=== PATIENT | female | born 1935 | race Caucasian/White ===

== ENCOUNTER 2016-09-26 09:34 | Outpatient (CLI) | payer MEDICARE, OTHER | END 2016-09-26 09:35 | disposition home or self-care (01) | DX: I48.91 Unspecified atrial fibrillation (principal) ==

== ENCOUNTER 2016-10-16 12:05 | Outpatient (CLI) | payer MEDICARE, OTHER | END 2016-10-16 12:06 | disposition home or self-care (01) | DX: M51.36 Other intervertebral disc degeneration, lumbar region (principal); M47.816 Spondylosis without myelopathy or radiculopathy, lumbar region; M47.814 Spondylosis without myelopathy or radiculopathy, thoracic region; M40.14 Other secondary kyphosis, thoracic region ==

== ENCOUNTER 2016-10-24 09:56 | Outpatient (CLI) | payer MEDICARE, OTHER | END 2016-10-24 09:57 | disposition home or self-care (01) | DX: I48.91 Unspecified atrial fibrillation (principal) ==

== ENCOUNTER 2016-11-07 09:54 | Outpatient (CLI) | payer MEDICARE, OTHER | END 2016-11-07 09:55 | disposition home or self-care (01) | DX: I48.91 Unspecified atrial fibrillation (principal) ==

== ENCOUNTER 2016-11-28 10:13 | Emergency (ER) | payer MEDICARE, OTHER ==
[2016-11-28] MEDS ORDERED: CEPHALEXIN 250 MG CAPSULE PO STA (10:33)
[2016-11-28] MEDS ORDERED: BACITRACIN OINT TOP STA (10:33)
[2016-11-28] MEDS ORDERED: CEPHALEXIN 250 MG CAPSULE PO ONE (10:38)
== END 2016-11-28 11:57 | disposition home or self-care (01) ==
DX: L03.114 Cellulitis of left upper limb (principal); L76.21 Postprocedural hemorrhage of skin and subcutaneous tissue following a dermatologic procedure; Y83.8 Other surgical procedures as the cause of abnormal reaction of the patient, or of later complication, without mention of misadventure at the time of the procedure; E11.51 Type 2 diabetes mellitus with diabetic peripheral angiopathy without gangrene; I10 Essential (primary) hypertension; E78.00 Pure hypercholesterolemia, unspecified; I48.91 Unspecified atrial fibrillation; J44.9 Chronic obstructive pulmonary disease, unspecified; Z86.73 Personal history of transient ischemic attack (TIA), and cerebral infarction without residual deficits; Z87.891 Personal history of nicotine dependence; Z79.1 Long term (current) use of non-steroidal anti-inflammatories (NSAID)
CPT/HCPCS: 36415; 85610; 99283; A9270

== ENCOUNTER 2016-12-01 09:28 | Emergency (ER) | payer MEDICARE, OTHER | END 2016-12-01 10:29 | disposition home or self-care (01) | DX: T81.30XA Disruption of wound, unspecified, initial encounter (principal); Y83.8 Other surgical procedures as the cause of abnormal reaction of the patient, or of later complication, without mention of misadventure at the time of the procedure; M79.89 Other specified soft tissue disorders; I48.91 Unspecified atrial fibrillation; Z79.01 Long term (current) use of anticoagulants; E11.51 Type 2 diabetes mellitus with diabetic peripheral angiopathy without gangrene; I10 Essential (primary) hypertension; J44.9 Chronic obstructive pulmonary disease, unspecified; Z87.891 Personal history of nicotine dependence ==

== ENCOUNTER 2016-12-06 08:29 | Outpatient (CLI) | payer MEDICARE, OTHER | END 2016-12-06 08:30 | disposition home or self-care (01) | DX: I48.91 Unspecified atrial fibrillation (principal) ==

== ENCOUNTER 2017-01-02 10:39 | Outpatient (CLI) | payer MEDICARE, OTHER | END 2017-01-02 10:40 | disposition home or self-care (01) | DX: I48.91 Unspecified atrial fibrillation (principal) ==

== ENCOUNTER 2017-01-30 09:53 | Outpatient (CLI) | payer MEDICARE, OTHER | END 2017-01-30 09:54 | disposition home or self-care (01) | DX: I48.91 Unspecified atrial fibrillation (principal) ==

== ENCOUNTER 2017-02-06 09:37 | Outpatient (CLI) | payer MEDICARE, OTHER | END 2017-02-06 09:38 | disposition home or self-care (01) | LOC: LAB 09:37 | PROVIDERS: ATTEND Internal Medicine | DX: I48.91 Unspecified atrial fibrillation (principal) | CPT/HCPCS: 85610 ==

== ENCOUNTER 2017-02-12 10:21 | Outpatient (CLI) | payer MEDICARE, OTHER ==
--- NOTE | 2017-02-12 11:31 | CT Report ---
CT BRAIN WITHOUT CONTRAST: 02/12/2017 CLINICAL INDICATION: Headache, multiple falls. COMPARISON: 12/16/2014 TECHNIQUE: Axial CT images of the brain were obtained without contrast. In accordance with CT protocol optimization, one or more of the following dose reduction techniques w ere utilized for this exam: automated exposure control, adjustment of mA and/or KV based on patient size, or use of iterative reconstructive technique. FINDINGS: Atrophy and chronic ischemic changes appear stable. There is no evidence of acute hemorr alvaro, mass effect, or midline shift. The basilar cisterns remain patent. No calvarial fracture is s een. IMPRESSION: STABLE ATROPHY AND CHRONIC ISCHEMIC CHANGES. NO ACUTE HEMORRHAGE OR MASS EFFECT. JOB #: [id number] EXT JOB #:[id number]
--- NOTE | 2017-02-12 12:12 | XRAY Report ---
THREE-VIEW CERVICAL SPINE: 02/12/2017 CLINICAL INDICATION: Neck pain, tenderness to palpation, decreased range of motion. FINDINGS: AP, lateral, odontoid views of the cervical spine are compared to previous films of 2008. There has been progression of degenerative disc and facet disease, now severe. There is no ev idence of acute fracture or subluxation. Postoperative changes are noted in the right carotid bed. Vascular calcifications are noted in the left carotid bed. IMPRESSION: EXTENSIVE DEGENERATIVE CHANGES. NO EVIDENCE OF ACUTE FRACTURE. JOB #: [id number] EXT JOB #:[id number]
== END 2017-02-12 10:22 | disposition home or self-care (01) ==
LOC: DI 10:21
PROVIDERS: ATTEND Nurse Practitioner Primary Care
DX: G31.9 Degenerative disease of nervous system, unspecified (principal); I67.82 Cerebral ischemia; M50.30 Other cervical disc degeneration, unspecified cervical region; M47.892 Other spondylosis, cervical region
CPT/HCPCS: 70450; 72040

== ENCOUNTER 2017-02-20 10:02 | Outpatient (CLI) | payer MEDICARE, OTHER | END 2017-02-20 10:03 | disposition home or self-care (01) | LOC: LAB 10:02 | PROVIDERS: ATTEND Internal Medicine | DX: I48.91 Unspecified atrial fibrillation (principal) | CPT/HCPCS: 85610 ==

== ENCOUNTER 2017-03-20 08:29 | Outpatient (CLI) | payer MEDICARE, OTHER ==
[2017-03-20 09:42] LABS: ALBUMIN/GLOBULIN RATIO 1.4 (1.0-2.2); BUN - BLOOD UREA NITROGEN 34 mg/dL (6-20); CALCIUM 8.6 mg/dL (8.5-10.3); CARBON DIOXIDE - CO2 30 mmol/L (21-32); CHLORIDE 102 mmol/L (101-111); CHOL/HDL RATIO 2.4 (<4.4); CHOLESTEROL 126 mg/dL; CREATININE 1.6 mg/dL (0.4-1.0); GFR - MDRD 31 (>89); GLUCOSE 103 mg/dL (70-100); HDL CHOLESTEROL 53 mg/dL; POTASSIUM 4.1 mmol/L (3.5-5.0); SODIUM 139 mmol/L (135-145); TOTAL PROTEIN 6.6 g/dL (6.7-8.2); TRIGLYCERIDES 98 mg/dL; VLDL CHOLESTEROL 20 mg/dL
[2017-03-20 09:44] LABS: INR 2.1 (0.8-1.2); PT - PROTHROMBIN TIME 23.8 secs (9.9-12.6)
[2017-03-20 09:50] LABS: EOSINOPHILS # (AUTO) 0.1 10^3/uL (0.0-0.7); EOSINOPHILS % (AUTO) 2.8 %; HGB - HEMOGLOBIN 13.2 g/dL (12.0-16.0); LYMPHOCYTES # (AUTO) 0.7 10^3/uL (1.5-3.5); LYMPHOCYTES % (AUTO) 15.7 %; MEAN CORPUSCULAR HEMOGLOBIN 32.9 pg (27.0-31.0); MEAN CORPUSCULAR HGB CONC 33.9 g/dL (32.0-36.0); MEAN CORPUSCULAR VOLUME 97.1 fL (81.0-99.0); MEAN PLATELET VOLUME 9.8 fL (7.9-10.8); MONOCYTES # (AUTO) 0.6 10^3/uL (0.0-1.0); MONOCYTES % (AUTO) 14.2 %; NEUTROPHILS % (AUTO) 66.3 %; RED BLOOD COUNT 4.02 10^6/uL (4.20-5.40); RED CELL DISTRIBUTION WIDTH 13.7 % (12.0-15.0); UNCORRECTED WHITE BLOOD COUNT 4.5 x10^3/uL; WHITE BLOOD COUNT 4.5 x10^3/uL (4.8-10.8)
== END 2017-03-20 08:30 | disposition home or self-care (01) ==
LOC: LAB.R 08:29
PROVIDERS: ATTEND Nurse Practitioner Primary Care
DX: E78.2 Mixed hyperlipidemia (principal); N18.9 Chronic kidney disease, unspecified; I12.9 Hypertensive chronic kidney disease with stage 1 through stage 4 chronic kidney disease, or unspecified chronic kidney disease; R73.09 Other abnormal glucose; I48.2 Chronic atrial fibrillation; Z79.01 Long term (current) use of anticoagulants; Z79.899 Other long term (current) drug therapy
CPT/HCPCS: 80053; 80061; 84443; 85025; 85610

== ENCOUNTER 2017-04-07 10:01 | Outpatient (CLI) | payer MEDICARE, OTHER | END 2017-04-07 10:02 | disposition home or self-care (01) | LOC: LAB 10:01 | PROVIDERS: ATTEND Internal Medicine | DX: I48.91 Unspecified atrial fibrillation (principal) | CPT/HCPCS: 85610 ==

== ENCOUNTER 2017-05-06 10:36 | Outpatient (CLI) | payer MEDICARE, OTHER | END 2017-05-06 10:37 | disposition home or self-care (01) | LOC: LAB 10:36 | PROVIDERS: ATTEND Internal Medicine | DX: I48.91 Unspecified atrial fibrillation (principal) | CPT/HCPCS: 85610 ==

== ENCOUNTER 2017-06-03 10:11 | Outpatient (CLI) | payer MEDICARE, OTHER | END 2017-06-03 10:12 | disposition home or self-care (01) | LOC: LAB 10:11 | PROVIDERS: ATTEND Internal Medicine | DX: I48.91 Unspecified atrial fibrillation (principal) | CPT/HCPCS: 85610 ==

== ENCOUNTER 2017-06-10 10:09 | Outpatient (CLI) | payer MEDICARE, OTHER | END 2017-06-10 10:10 | disposition home or self-care (01) | LOC: LAB 10:09 | PROVIDERS: ATTEND Internal Medicine | DX: I48.91 Unspecified atrial fibrillation (principal) | CPT/HCPCS: 85610 ==

== ENCOUNTER 2017-06-17 09:13 | Outpatient (CLI) | payer MEDICARE, OTHER | END 2017-06-17 09:14 | disposition home or self-care (01) | LOC: LAB 09:13 | PROVIDERS: ATTEND Internal Medicine | DX: I48.91 Unspecified atrial fibrillation (principal); N18.3 Chronic kidney disease, stage 3 (moderate) | CPT/HCPCS: 82565; 84520; 85610 ==

== ENCOUNTER 2017-06-17 12:58 | Outpatient (CLI) | payer MEDICARE, OTHER ==
[2017-06-17 13:28] LABS: CREATININE 1.4 mg/dL (0.4-1.0)
== END 2017-06-17 12:59 | disposition home or self-care (01) ==
LOC: LAB.R 12:58
PROVIDERS: ATTEND Nurse Practitioner Primary Care
DX: N18.3 Chronic kidney disease, stage 3 (moderate) (principal)
CPT/HCPCS: 82565; 84520

== ENCOUNTER 2017-06-24 09:34 | Outpatient (CLI) | payer MEDICARE, OTHER | END 2017-06-24 09:35 | disposition home or self-care (01) | LOC: LAB 09:34 | PROVIDERS: ATTEND Internal Medicine | DX: I48.91 Unspecified atrial fibrillation (principal) | CPT/HCPCS: 85610 ==

== ENCOUNTER 2017-07-22 12:56 | Outpatient (CLI) | payer MEDICARE, OTHER | END 2017-07-22 12:57 | disposition home or self-care (01) | LOC: LAB 12:56 | PROVIDERS: ATTEND Internal Medicine | DX: I48.91 Unspecified atrial fibrillation (principal) | CPT/HCPCS: 85610 ==

== ENCOUNTER 2017-08-02 11:41 | Emergency (ER) | payer MEDICARE, OTHER ==
--- NOTE | 2017-08-02 12:21 | ED Physician Documentation ---
PD HPI UPPER EXT INJURY - Stated complaint Stated Complaint: R HAND LUMP-BRUISE/ARM BRUISE - Chief complaint Chief Complaint: Ext Problem - History obtained from History obtained from: Patient - History of Present Illness Location: Right, Hand (Without specific injury she has a several day painful lump on the dorsum of the right hand. Somewhat painful. Last INR was 2.8 a couple of weeks ago.) Review of Systems Constitutional: reports: Reviewed and negative Nose: reports: Reviewed and negative Respiratory: reports: Reviewed and negative PD PAST MEDICAL HISTORY - Past Medical History Past Medical History: Yes Cardiovascular: Hypertension, High cholesterol, Peripheral Vascular Disease, Atrial fibrillation Respiratory: COPD, Pneumonia Neuro: CVA Endocrine/Autoimmune: Type 2 diabetes : Renal insuffiency, Kidney stones HEENT: Macular degeneration Musculoskeletal: Osteoarthritis, Osteopenia, Gout, Chronic back pain Derm: Other - Past Surgical History Past Surgical History: Yes General: Appendectomy, Colonoscopy Ortho: Hip replacement, Knee replacement, 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 HEENT: Cataracts - Present Medications Home Medications: Ambulatory Orders Medication Instructions Recorded Confirmed Warfarin Sodium 5 mg PO DAILY 10/10/14 08/02/17 Albuterol Sulfate [Ventolin Hfa] 1 puffs INH BID 12/15/14 08/02/17 Atorvastatin [Lipitor] 10 mg PO DAILY 12/15/14 08/02/17 Cholecalciferol [Vitamin D3] 2,000 mg PO DAILY 12/15/14 08/02/17 Fluticasone/Salmeterol 500/50 1 puffs INH BID 12/15/14 08/02/17 [Advair 500 Mcg/50 Mcg] Lisinopril 30 mg PO DAILY 12/15/14 08/02/17 Metoprolol Succinate 25 mg PO BID 12/15/14 08/02/17 Montelukast Sodium [Singulair] 10 mg PO DAILY 12/15/14 08/02/17 Ubidecarenone [Coenzyme Q10] 10 mg PO DAILY 12/15/14 08/02/17 Lidocaine Patch 5% [Lidoderm Patch] 1 each TOP DAILY PRN #10 patch 09/04/1510/18 Loratadine [Claritin] 10 mg PO DAILY 09/04/15 08/02/17 Furosemide 20 mg PO DAILY 11/28/16 08/02/17 - Allergies Allergies/Adverse Reactions: Allergies Allergy/AdvReac Type Severity Reaction Status Date / Time No Known Drug Allergies Allergy Verified 08/02/17 11:52 - Social History Does the pt smoke?: No Smoking Status: Never smoker Does the pt drink ETOH?: No Does the pt have substance abuse?: No - Immunizations Immunizations are current?: Yes - POLST Patient has POLST: No PD ED PE NORMAL - Vitals Vital signs reviewed: Yes - General General: Alert and oriented X 3, No acute distress - Extremities Extremities: Other (Tender hematoma measuring 2x2cm with swelling and bruising up the forearm. NVI in the fingers.) - Neuro Neuro: Alert and oriented X 3, Normal speech - Psych Psych: Normal mood, Normal affect Results - Vitals Vitals: Vital Signs - 24 hr 08/02/17 08/02/17 11:46 12:53 Temperature 36.2 C L 36.3 C L Heart Rate 69 63 Respiratory 16 18 Rate Blood Pressure 132/66 H 146/76 H O2 Saturation 100 100 Oxygen O2 Source Room air - Labs Labs: Laboratory Tests 08/02/17 13:11 Whole Blood INR 7.2 H* Procedures - Abscess I&D (location) R hand hematoma Preparation: Confirmed with ultrasound, Chlorhexadine, Lidocaine 1%, Other (We discussed potentially either leaving it with a pressure dressing or doing an incision and drainage, she is losing sleep over the pain and the pressure of that so it seems reasonable to do the incision and drainage, verbal informed consent was obtained after discussion of the risks and benefits including infection.) Incision: Incised with scalpel Other: Pt tolerated well, Dressing applied PD MEDICAL DECISION MAKING - ED course ED course: 82-year-old with a swollen hematoma of the right hand that was incised and drained and dressed, her INR was quite supratherapeutic and she was given a small oral dose of vitamin K and close follow-up was advised. Departure - Departure Disposition: 01 Home, Self Care Clinical Impression: Supratherapeutic INR Traumatic hematoma of right hand Qualifiers: Encounter type: initial encounter Qualified Code(s): S60.221A - Contusion of right hand, initial encounter Condition: Good Record reviewed to determine appropriate education?: Yes Comments: You can change the dressing once a day, washing it with soap and water but leaving the Steri-Strips/butterfly bandages on. Follow-up with Dr. rodrigues on Friday for wound check and recheck of your INR which was greater than 7 today. Stop Coumadin until you see Dr Rodrigues.
[2017-08-02 12:54] VITALS: BP 146/76
[2017-08-02] MEDS ORDERED: PHYTONADIONE 10 MG/ML AMP PO ONE (13:15)
[2017-08-02] MEDS ORDERED: PHYTONADIONE 10 MG/ML AMP ONE (13:32)
== END 2017-08-02 13:48 | disposition home or self-care (01) ==
LOC: ED 11:41
DX: S60.221A Contusion of right hand, initial encounter (principal); X58.XXXA Exposure to other specified factors, initial encounter; I10 Essential (primary) hypertension; E11.51 Type 2 diabetes mellitus with diabetic peripheral angiopathy without gangrene; E78.00 Pure hypercholesterolemia, unspecified; R79.1 Abnormal coagulation profile; I48.91 Unspecified atrial fibrillation; Z86.73 Personal history of transient ischemic attack (TIA), and cerebral infarction without residual deficits; Z96.659 Presence of unspecified artificial knee joint; Z96.649 Presence of unspecified artificial hip joint; Z79.01 Long term (current) use of anticoagulants
CPT/HCPCS: 10140; 11740; 85610; 99283

== ENCOUNTER 2017-08-06 13:05 | Outpatient (CLI) | payer MEDICARE, OTHER | END 2017-08-06 13:06 | disposition home or self-care (01) | LOC: LAB 13:05 | PROVIDERS: ATTEND Internal Medicine | DX: I48.91 Unspecified atrial fibrillation (principal); L03.113 Cellulitis of right upper limb; Z76.89 Persons encountering health services in other specified circumstances | CPT/HCPCS: 80053; 85025; 85610 ==

== ENCOUNTER 2017-08-06 14:13 | Outpatient (CLI) | payer MEDICARE, OTHER ==
[2017-08-06 14:55] LABS: BASOPHILS % (AUTO) 0.2 %; EOSINOPHILS % (AUTO) 0.4 %; HCT - HEMATOCRIT 38.7 % (37.0-47.0); HGB - HEMOGLOBIN 13.4 g/dL (12.0-16.0); LYMPHOCYTES # (AUTO) 0.4 10^3/uL (1.5-3.5); LYMPHOCYTES % (AUTO) 5.3 %; MEAN CORPUSCULAR HEMOGLOBIN 33.5 pg (27.0-31.0); MEAN CORPUSCULAR HGB CONC 34.6 g/dL (32.0-36.0); MEAN CORPUSCULAR VOLUME 96.7 fL (81.0-99.0); MEAN PLATELET VOLUME 10.2 fL (7.9-10.8); MONOCYTES % (AUTO) 12.1 %; NEUTROPHILS # (AUTO) 6.7 10^3/uL (1.5-6.6); NUCLEATED RED BLOOD CELLS AUTO 0.3 /100WBC; RED CELL DISTRIBUTION WIDTH 13.9 % (12.0-15.0); UNCORRECTED WHITE BLOOD COUNT 8.2 x10^3/uL; WHITE BLOOD COUNT 8.2 x10^3/uL (4.8-10.8)
[2017-08-06 15:02] LABS: ALBUMIN/GLOBULIN RATIO 1.1 (1.0-2.2); BILIRUBIN,TOTAL 3.3 mg/dL (0.2-1.0); CALCIUM 8.8 mg/dL (8.5-10.3); CREATININE 1.3 mg/dL (0.4-1.0); POTASSIUM 4.1 mmol/L (3.5-5.0)
== END 2017-08-06 14:14 | disposition home or self-care (01) ==
LOC: LAB.R 14:13
PROVIDERS: ATTEND Nurse Practitioner Primary Care
DX: L03.113 Cellulitis of right upper limb (principal); Z76.89 Persons encountering health services in other specified circumstances
CPT/HCPCS: 80053; 85025

== ENCOUNTER 2017-08-18 10:25 | Emergency (ER) | payer MEDICARE, OTHER ==
[2017-08-18 10:35] VITALS: BP 125/73
--- NOTE | 2017-08-18 12:15 | ED Physician Documentation ---
PD HPI UPPER EXT INJURY - Stated complaint Stated Complaint: R HAND SWOLLEN - Chief complaint Chief Complaint: Ext Problem - History obtained from History obtained from: Patient - History of Present Illness Location: Right (She was seen by me approximately 2 weeks ago for right hand hematoma with a supratherapeutic INR, about 7. She has seen her doctor in the meantime and was placed on antibiotics and her INR has drifted down. She returns today because there is another persistent painful lump on the dorsum of the hand without fevers but there is mild redness of the arm.) Review of Systems Constitutional: reports: Reviewed and negative. denies: Fever, Chills Nose: reports: Reviewed and negative Throat: reports: Reviewed and negative PD PAST MEDICAL HISTORY - Past Medical History Past Medical History: Yes Cardiovascular: Hypertension, High cholesterol, Peripheral Vascular Disease, Atrial fibrillation Respiratory: COPD, Pneumonia Neuro: CVA Endocrine/Autoimmune: Type 2 diabetes : Renal insuffiency, Kidney stones HEENT: Macular degeneration Musculoskeletal: Osteoarthritis, Osteopenia, Gout, Chronic back pain Derm: Other - Past Surgical History Past Surgical History: Yes General: Appendectomy, Colonoscopy Ortho: Hip replacement, Knee replacement, 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 HEENT: Cataracts - Present Medications Home Medications: Ambulatory Orders Medication Instructions Recorded Confirmed Warfarin Sodium 5 mg PO DAILY 10/10/14 08/18/17 Albuterol Sulfate [Ventolin Hfa] 1 puffs INH BID 12/15/14 08/18/17 Atorvastatin [Lipitor] 10 mg PO DAILY 12/15/14 08/18/17 Cholecalciferol [Vitamin D3] 2,000 mg PO DAILY 12/15/14 08/18/17 Fluticasone/Salmeterol 500/50 1 puffs INH BID 12/15/14 08/18/17 [Advair 500 Mcg/50 Mcg] Lisinopril 30 mg PO DAILY 12/15/14 08/18/17 Metoprolol Succinate 25 mg PO BID 12/15/14 08/18/17 Montelukast Sodium [Singulair] 10 mg PO DAILY 12/15/14 08/18/17 Ubidecarenone [Coenzyme Q10] 10 mg PO DAILY 12/15/14 08/18/17 Lidocaine Patch 5% [Lidoderm Patch] 1 each TOP DAILY PRN #10 patch 09/04/15 Loratadine [Claritin] 10 mg PO DAILY 09/04/15 08/18/17 Furosemide 20 mg PO DAILY 11/28/16 08/18/17 Cephalexin [Keflex] 500 mg PO QID #40 capsule 08/18/17 - Allergies Allergies/Adverse Reactions: Allergies Allergy/AdvReac Type Severity Reaction Status Date / Time No Known Drug Allergies Allergy Verified 08/18/17 10:35 - Social History Does the pt smoke?: No Smoking Status: Former smoker Does the pt drink ETOH?: No Does the pt have substance abuse?: No - Immunizations Immunizations are current?: Yes - POLST Patient has POLST: No PD ED PE NORMAL - Vitals Vital signs reviewed: Yes - General General: Alert and oriented X 3, No acute distress - Extremities Extremities: Other (On the dorsum of this the right hand where identity incision and drainage before it is flat without signs of infection. Just to the radial side of that there is a smaller tender hematoma and there is mild redness of the arm. She has good range of motion.) Results - Vitals Vitals: Vital Signs - 24 hr 08/18/17 10:31 Temperature 36.5 C Heart Rate 60 Respiratory 20 Rate Blood Pressure 125/73 O2 Saturation 98 Oxygen O2 Source Room air - Labs Labs: Laboratory Tests 08/18/17 08/18/17 11:45 11:51 Whole Blood INR 1.9 H POC Whole Bld Glucose 136 H Procedures - Abscess I&D (location) Right hand hematoma Preparation: Chlorhexadine, Lidocaine 1%, With epi Incision: Incised with scalpel. No: Purulent drainage (just clot) Other: Pt tolerated well, Dressing applied, Antibiotic prescribed Departure - Departure Disposition: 01 Home, Self Care Clinical Impression: Traumatic hematoma of right hand Qualifiers: Encounter type: initial encounter Qualified Code(s): S60.221A - Contusion of right hand, initial encounter Condition: Good Record reviewed to determine appropriate education?: Yes Prescriptions: Cephalexin [Keflex] 500 mg PO QID #40 capsule Comments: Return if the redness worsens or if you run a fever. As discussed her INR today is 1.9 which is fine but may trend up again while on antibiotics. Follow up with Dr. rodrigues on or about Friday or for wound check and INR recheck.
== END 2017-08-18 12:21 | disposition home or self-care (01) ==
LOC: ED 10:25
DX: S60.221A Contusion of right hand, initial encounter (principal); X58.XXXA Exposure to other specified factors, initial encounter; I10 Essential (primary) hypertension; E78.00 Pure hypercholesterolemia, unspecified; E11.51 Type 2 diabetes mellitus with diabetic peripheral angiopathy without gangrene; Z86.73 Personal history of transient ischemic attack (TIA), and cerebral infarction without residual deficits; I48.91 Unspecified atrial fibrillation; Z79.01 Long term (current) use of anticoagulants; Z87.891 Personal history of nicotine dependence; Z96.649 Presence of unspecified artificial hip joint; Z96.659 Presence of unspecified artificial knee joint
CPT/HCPCS: 10060; 85610; 99283

== ENCOUNTER 2017-12-02 08:00 | Outpatient (CLI) | payer MEDICARE, OTHER | END 2017-12-02 08:01 | disposition home or self-care (01) | LOC: LAB.R 08:00 | PROVIDERS: ATTEND Nurse Practitioner Primary Care | DX: L03.116 Cellulitis of left lower limb (principal) | CPT/HCPCS: 87070; 87205 ==

== ENCOUNTER 2018-03-18 08:00 | Outpatient (CLI) | payer MEDICARE, OTHER ==
[2018-03-18 11:21] LABS: BASOPHILS # (AUTO) 0.1 10^3/uL (0.0-0.1); EOSINOPHILS # (AUTO) 0.5 10^3/uL (0.0-0.7); HGB - HEMOGLOBIN 13.5 g/dL (12.0-16.0); LYMPHOCYTES # (AUTO) 0.5 10^3/uL (1.5-3.5); LYMPHOCYTES % (AUTO) 8.1 %; MEAN CORPUSCULAR HEMOGLOBIN 33.4 pg (27.0-31.0); MEAN CORPUSCULAR HGB CONC 33.6 g/dL (32.0-36.0); MEAN CORPUSCULAR VOLUME 99.2 fL (81.0-99.0); MEAN PLATELET VOLUME 9.9 fL (7.9-10.8); MONOCYTES # (AUTO) 0.8 10^3/uL (0.0-1.0); MONOCYTES % (AUTO) 13.3 %; NEUTROPHILS # (AUTO) 3.9 10^3/uL (1.5-6.6); NEUTROPHILS % (AUTO) 68.6 %; PLT - PLATELET COUNT 147 10^3/uL (130-450); RED BLOOD COUNT 4.05 10^6/uL (4.20-5.40); RED CELL DISTRIBUTION WIDTH 13.9 % (12.0-15.0); WHITE BLOOD COUNT 5.7 x10^3/uL (4.8-10.8)
[2018-03-18 11:36] LABS: ALBUMIN 3.5 g/dL (3.2-5.5); ALBUMIN/GLOBULIN RATIO 0.9 (1.0-2.2); ALKALINE PHOSPHATASE 93 IU/L (42-121); ALT ALANINE AMINOTRANSFERASE 26 IU/L (10-60); AST ASPARTATE AMINOTRANSFERASE 28 IU/L (10-42); BILIRUBIN,TOTAL 1.5 mg/dL (0.2-1.0); BUN - BLOOD UREA NITROGEN 28 mg/dL (6-20); CALCIUM 8.8 mg/dL (8.5-10.3); CARBON DIOXIDE - CO2 32 mmol/L (21-32); CHLORIDE 99 mmol/L (101-111); CHOL/HDL RATIO 2.3 (<4.4); CHOLESTEROL 129 mg/dL; CREATININE 1.3 mg/dL (0.4-1.0); GFR - MDRD 39 (>89); GLUCOSE 109 mg/dL (70-100); HDL CHOLESTEROL 57 mg/dL; LDL CHOLESTEROL,CALCULATED 54 mg/dL; LDL/HDL RATIO 0.9 (<4.4); SODIUM 138 mmol/L (135-145); TOTAL PROTEIN 7.3 g/dL (6.7-8.2); VLDL CHOLESTEROL 18 mg/dL
== END 2018-03-18 08:01 | disposition home or self-care (01) ==
LOC: LAB 08:00
PROVIDERS: ATTEND Nurse Practitioner Primary Care
DX: Z79.01 Long term (current) use of anticoagulants (principal); E78.5 Hyperlipidemia, unspecified; J44.9 Chronic obstructive pulmonary disease, unspecified; I10 Essential (primary) hypertension; M10.9 Gout, unspecified; Z79.899 Other long term (current) drug therapy
CPT/HCPCS: 80053; 80061; 83721; 84443; 85025

== ENCOUNTER 2018-11-12 11:51 | Outpatient (CLI) | payer MEDICARE, OTHER | END 2018-11-12 11:52 | disposition critical access hospital (66) | LOC: EMS 11:51 | PROVIDERS: ATTEND Surgery | DX: R06.00 Dyspnea, unspecified (principal); R26.2 Difficulty in walking, not elsewhere classified | CPT/HCPCS: A0425; A0427 ==

== ENCOUNTER 2018-11-12 12:06 | Emergency (ER) | payer MEDICARE, OTHER ==
[2018-11-12 12:37] LABS: BASOPHILS % (AUTO) 0.4 %; HGB - HEMOGLOBIN 14.6 g/dL (12.0-16.0); LYMPHOCYTES # (AUTO) 0.5 10^3/uL (1.5-3.5); LYMPHOCYTES % (AUTO) 4.3 %; MEAN CORPUSCULAR HEMOGLOBIN 33.3 pg (27.0-31.0); MEAN CORPUSCULAR HGB CONC 33.8 g/dL (32.0-36.0); MEAN CORPUSCULAR VOLUME 98.6 fL (81.0-99.0); MEAN PLATELET VOLUME 9.9 fL (7.9-10.8); MONOCYTES # (AUTO) 1.3 10^3/uL (0.0-1.0); MONOCYTES % (AUTO) 11.2 %; NEUTROPHILS # (AUTO) 9.5 10^3/uL (1.5-6.6); NEUTROPHILS % (AUTO) 84.1 %; PLT - PLATELET COUNT 108 10^3/uL (130-450); RED BLOOD COUNT 4.38 10^6/uL (4.20-5.40); RED CELL DISTRIBUTION WIDTH 14.5 % (12.0-15.0); WHITE BLOOD COUNT 11.3 x10^3/uL (4.8-10.8)
--- NOTE | 2018-11-12 12:46 | XRAY Report ---
Reason: chest pain Procedure Date: 11/12/2018 Accession Number: [id number] / [id number] Procedure: XR - Chest 1 View X-Ray CPT Code: 58363 FULL RESULT: EXAM: CHEST RADIOGRAPHY EXAM DATE: 11/12/2018 12:28 PM. CLINICAL HISTORY: Chest pain. COMPARISON: CHEST 2 VIEW PA/LAT 11/02/2015 10:42 AM. TECHNIQUE: 1 view. FINDINGS: Lungs/Pleura: Subsegmental airspace opacity is noted in the right lower lung. Small right pleural effusion, possible trace left effusion. No extra ventilatory air. Mediastinum: Heart is enlarged and slightly increased in size accounting for technical differences compared to studies of 2016. Mediastinal and hilar contours are within expected limits. Other: None. IMPRESSION: 1. Subsegmental right basilar airspace opacity with small effusion. In the right clinical context, this could indicate pneumonia. 2. Cardiomegaly without apparent interstitial pulmonary edema. RADIA
[2018-11-12 12:56] LABS: ALBUMIN 3.8 g/dL (3.2-5.5); ALBUMIN/GLOBULIN RATIO 1.1 (1.0-2.2); BILIRUBIN,TOTAL 2.7 mg/dL (0.2-1.0); CALCIUM 8.5 mg/dL (8.5-10.3); CREATININE 1.5 mg/dL (0.4-1.0); TOTAL PROTEIN 7.4 g/dL (6.7-8.2)
[2018-11-12] MEDS ORDERED: DOXYCYCLINE 100 MG TABLET PO STA (13:28)
[2018-11-12] MEDS ORDERED: IPRATROPIUM/ALBUTEROL 3 ML NEB INH STA (13:30)
--- NOTE | 2018-11-12 13:33 | ED Physician Documentation ---
PD HPI URI - Stated complaint Stated Complaint: SOA - Chief complaint Chief Complaint: Resp - History obtained from History obtained from: Patient, EMS - History of Present Illness Timing - onset: How many weeks ago (1) Timing duration: Weeks (1) Timing details: Gradual onset Pain level max: 0 Pain level now: 0 Associated symptoms: Fever, Nasal congestion, Rhinorrhea, Dry cough, Dyspnea Contributing factors: COPD / asthma. No: Immunocompromised Improves by: Rest, MDI/nebulizer Worsened by: Activity, Breathing Recently seen: Not recently seen Review of Systems Ten Systems: 10 systems reviewed and negative Constitutional: reports: Fever Throat: denies: Sore throat Cardiac: denies: Chest pain / pressure Respiratory: reports: Cough GI: denies: Nausea, Vomiting, Diarrhea Skin: denies: Rash Musculoskeletal: denies: Neck pain Neurologic: denies: Headache PD PAST MEDICAL HISTORY - Past Medical History Cardiovascular: Hypertension, High cholesterol, Peripheral Vascular Disease, Atrial fibrillation Respiratory: COPD, Pneumonia Endocrine/Autoimmune: Type 2 diabetes : Renal insuffiency, Kidney stones HEENT: Macular degeneration Musculoskeletal: Osteoarthritis, Osteopenia, Gout, Chronic back pain Derm: Other - Past Surgical History Past Surgical History: Yes General: Appendectomy, Colonoscopy Ortho: Hip replacement, Knee replacement, 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 HEENT: Cataracts - Present Medications Home Medications: Ambulatory Orders Medication Instructions Recorded Confirmed Warfarin Sodium 5 mg PO DAILY 10/10/14 11/12/18 Albuterol Sulfate [Ventolin Hfa] 1 puffs INH BID 12/15/14 11/12/18 Atorvastatin [Lipitor] 10 mg PO DAILY 12/15/14 11/12/18 Cholecalciferol [Vitamin D3] 2,000 mg PO DAILY 12/15/14 11/12/18 Fluticasone/Salmeterol 500/50 1 puffs INH BID 12/15/14 11/12/18 [Advair 500 Mcg/50 Mcg] Lisinopril 30 mg PO DAILY 12/15/14 11/12/18 Metoprolol Succinate 25 mg PO BID 12/15/14 11/12/18 Montelukast Sodium [Singulair] 10 mg PO DAILY 12/15/14 11/12/18 Furosemide 40 mg PO DAILY 11/28/16 11/12/18 Cetirizine HCl [Allergy Relief] 10 mg PO DAILY 11/12/18 11/12/18 Doxycycline Hyclate 100 mg PO BID #20 capsule 11/12/18 predniSONE [Deltasone] 10 mg PO [id number] #25 tab 11/12/18 - Allergies Allergies/Adverse Reactions: Allergies Allergy/AdvReac Type Severity Reaction Status Date / Time No Known Drug Allergies Allergy Verified 08/18/17 10:35 - Social History Does the pt smoke?: No Smoking Status: Former smoker Does the pt drink ETOH?: No Does the pt have substance abuse?: No - Immunizations Immunizations are current?: Yes - POLST Patient has POLST: No PD ED PE NORMAL - Vitals Vital signs reviewed: Yes - General General: Alert and oriented X 3, No acute distress, Well developed/nourished - HEENT HEENT: PERRL, Ears normal, Moist mucous membranes, Pharynx benign - Neck Neck: Supple, no meningeal sign - Cardiac Cardiac: Strong equal pulses, Other (Irregular) - Respiratory Respiratory: No respiratory distress, Clear bilaterally, Other (Wheezing bilaterally) - Abdomen Abdomen: Soft, Non tender, Non distended - Derm Derm: Warm and dry, No rash - Extremities Extremities: No calf tenderness / cord - Neuro Neuro: Alert and oriented X 3 - Psych Psych: Normal mood, Normal affect Results - Vitals Vitals: Vital Signs - 24 hr 11/12/18 11/12/18 11/12/18 12:10 12:20 13:49 Temperature 36.3 C L Heart Rate 121 H 121 H 123 H Respiratory 21 23 22 Rate Blood Pressure 139/97 H 134/109 H O2 Saturation 98 11/12/18 11/12/18 11/12/18 13:58 14:05 14:08 Temperature Heart Rate 124 H 119 H 92 Respiratory Rate Blood Pressure 132/95 H 142/94 H O2 Saturation 97 11/12/18 11/12/18 11/12/18 14:11 14:15 14:25 Temperature Heart Rate 93 100 94 Respiratory 29 H 16 Rate Blood Pressure 113/75 113/81 H 113/80 O2 Saturation 96 96 11/12/18 11/12/18 14:30 14:45 Temperature Heart Rate 99 102 H Respiratory Rate Blood Pressure 121/69 118/83 H O2 Saturation 95 95 Oxygen O2 Source Room air - Labs Labs: Laboratory Tests 11/12/18 11/12/18 11/12/18 12:28 12:28 12:28 WBC 11.3 H RBC 4.38 Hgb 14.6 Hct 43.1 MCV 98.6 MCH 33.3 H MCHC 33.8 RDW 14.5 Plt Count 108 L MPV 9.9 Neut # (Auto) 9.5 H Lymph # (Auto) 0.5 L [place] # (Auto) 1.3 H Eos # (Auto) 0.0 Baso # (Auto) 0.0 Absolute Nucleated RBC 0.00 Nucleated RBC % 0.0 PT 13.8 H INR 1.2 Sodium 133 L Potassium 3.7 Chloride 91 L Carbon Dioxide 27 Anion Gap 15.0 H BUN 43 H Creatinine 1.5 H Estimated GFR (MDRD) 33 L Glucose 205 H Calcium 8.5 Total Bilirubin 2.7 H AST 114 H ALT 43 Alkaline Phosphatase 98 Total Protein 7.4 Albumin 3.8 Globulin 3.6 Albumin/Globulin Ratio 1.1 Lipase 26 - Rads (name of study) Chest x-ray Radiology: Prelim report reviewed, EMP read contemporaneously, See rad report (Subsegmental right basilar airspace opacity with small effusion. In the right clinical context, this could indicate pneumonia. 2. Cardiomegaly without apparent interstitial pulmonary edema. ) PD MEDICAL DECISION MAKING - ED course Complexity details: reviewed results, re-evaluated patient, considered di fferential, d/w patient ED course: 83-year-old female with what appears to be right-sided pneumonia on chest x-ray. Has COPD and atrial fibrillation as well. Breathing easier after Solu-Medrol and nebulizer treatment with EMS. Will start on doxycycline as well as steroids. She is not hypoxic or in respiratory distress. We will have her follow-up with her PCP closely for further care. Patient counseled regarding signs and symptoms for which I believe and urgent re-evaluation would be necessary. Patient with good understanding of and agreement to plan and [facility] at this time This document was made in part using voice recognition software. While efforts are made to proofread this document, sound alike and grammatical errors may occur. Departure - Departure Disposition: 01 Home, Self Care Clinical Impression: Pneumonia Qualifiers: Pneumonia type: due to unspecified organism Laterality: right Lung location: lower lobe of lung Qualified Code(s): J18.1 - Lobar pneumonia, unspecified organism Condition: Good Instructions: ED Pneumonia Adult Follow-Up: Tejinder Whaley MD [Primary Care Provider] - Within 3 Days Prescriptions: Doxycycline Hyclate 100 mg PO BID #20 capsule predniSONE [Deltasone] 10 mg PO [id number] #25 tab Comments: Continue your inhalers at home. Return if you worsen. Take all antibiotics until gone. Discharge Date/Time: 11/12/18 15:00
[2018-11-12 13:40] LABS: INR 1.2 (0.8-1.2); PT - PROTHROMBIN TIME 13.8 secs (9.9-12.6)
[2018-11-12] MEDS ORDERED: diltiaZEM INJ 5 MG/ML VIAL IVP STA (13:55)
[2018-11-12 14:51] VITALS: BP 118/83
== END 2018-11-12 15:00 | disposition home or self-care (01) ==
LOC: EDUNIT# → ED 12:06
DX: J18.1 Lobar pneumonia, unspecified organism (principal); J44.9 Chronic obstructive pulmonary disease, unspecified; I10 Essential (primary) hypertension; E11.51 Type 2 diabetes mellitus with diabetic peripheral angiopathy without gangrene; I48.91 Unspecified atrial fibrillation; Z79.01 Long term (current) use of anticoagulants; Z96.659 Presence of unspecified artificial knee joint; Z96.649 Presence of unspecified artificial hip joint; Z87.891 Personal history of nicotine dependence
CPT/HCPCS: 36415; 71045; 80053; 83690; 85025; 85610; 94640; 96374; 99284; A9270

== ENCOUNTER 2018-11-20 16:00 | Outpatient (CLI) | payer MEDICARE, OTHER | END 2018-11-20 16:01 | disposition critical access hospital (66) | LOC: EMS 16:00 | PROVIDERS: ATTEND Surgery | DX: R40.4 Transient alteration of awareness (principal); R47.1 Dysarthria and anarthria; I69.951 Hemiplegia and hemiparesis following unspecified cerebrovascular disease affecting right dominant side; R11.10 Vomiting, unspecified; R05 Cough; R53.1 Weakness | CPT/HCPCS: A0425; A0427 ==

== ENCOUNTER 2018-11-20 16:14 | Inpatient (IN) | payer MEDICARE, OTHER ==
--- NOTE | 2018-11-20 16:33 | ED Physician Documentation ---
History of Present Illness - Stated complaint Stated Complaint: POSS TIA - Additonal information Additional information: 83-year-old female presents the emergency department after an episode of right- sided weakness which occurred while at home. The patient reports having difficulty moving her extremities more so on the right side and the symptoms resolved after 2 minutes. Presently, the patient reports being at her baseline. The patient denies any other neurologic changes presently. The patient has had a cough and is recently been treated for pneumonia. No other associated symptoms. Presently the patient only reports a mild cough. No triggering factors. No relieving factors Review of Systems Constitutional: denies: Fever, Fatigue Eyes: denies: Discharge Ears: denies: Ear pain Nose: reports: Congestion Throat: denies: Sore throat Cardiac: denies: Chest pain / pressure Respiratory: reports: Cough GI: denies: Abdominal Pain Skin: denies: Laceration (s) Musculoskeletal: denies: Extremity pain Neurologic: reports: Focal weakness. 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 HEENT: Cataracts - Present Medications Home Medications: Ambulatory Orders Medication Instructions Recorded Confirmed Warfarin Sodium 5 mg PO DAILY 10/10/14 11/12/18 Albuterol Sulfate [Ventolin Hfa] 1 puffs INH BID 12/15/14 11/12/18 Atorvastatin [Lipitor] 10 mg PO DAILY 12/15/14 11/12/18 Cholecalciferol [Vitamin D3] 2,000 mg PO DAILY 12/15/14 11/12/18 Fluticasone/Salmeterol 500/50 1 puffs INH BID 12/15/14 11/12/18 [Advair 500 Mcg/50 Mcg] Lisinopril 30 mg PO DAILY 12/15/14 11/12/18 Metoprolol Succinate 25 mg PO BID 12/15/14 11/12/18 Montelukast Sodium [Singulair] 10 mg PO DAILY 12/15/14 11/12/18 Furosemide 40 mg PO DAILY 11/28/16 11/12/18 Cetirizine HCl [Allergy Relief] 10 mg PO DAILY 11/12/18 11/12/18 Doxycycline Hyclate 100 mg PO BID #20 capsule 11/12/18 predniSONE [Deltasone] 10 mg PO [id number] #25 tab 11/12/18 - Allergies Allergies/Adverse Reactions: Allergies Allergy/AdvReac Type Severity Reaction Status Date / Time No Known Drug Allergies Allergy Verified 08/18/17 10:35 - Social History Does the pt smoke?: No Smoking Status: Former smoker Does the pt drink ETOH?: No Does the pt have substance abuse?: No - Immunizations Immunizations are current?: Yes - POLST Patient has POLST: No PD ED PE NORMAL - General General: Other (83-year-old chronically ill-appearing female who is alert, cooperative, following commands and appears to be in no acute distress) - HEENT HEENT: Atraumatic, PERRL, EOMI, Ears normal - Cardiac Cardiac: Strong equal pulses, Other (Irregular rhythm with normal rate) - Respiratory Respiratory: No respiratory distress, Other (Bilateral rhonchi) - Abdomen Abdomen: Soft, Non tender - Derm Derm: Other (Multiple old bruises in various states of healing on the upper and lower extremities) - Extremities Extremities: No deformity - Neuro Neuro: Other (The patient's alert, cooperative. The patient's face is symmetric. The tongue is midline. Cranial nerves II through XII are intact. The patient has equal saas architect strength bilaterally. Negative pronator drift in the upper and lower extremities. The patient's speech is clear. The patient has normal sensation light touch in the upper and lower extremities) Results - Vitals Vitals: Vital Signs - 24 hr 11/20/18 11/20/18 11/20/18 16:20 16:35 17:05 Temperature 36.8 C Heart Rate 74 68 75 Respiratory 29 H 18 Rate Blood Pressure 133/81 H 129/70 O2 Saturation 97 96 97 Oxygen O2 Source Room air - EKG (time done) 16:40 Rate: Rate (enter#) Rhythm: Atrial fibrillation Intervals: QRS normal Ischemia: Non specific changes - Labs Labs: Laboratory Tests 11/20/18 11/20/18 11/20/18 16:48 16:48 16:48 WBC 13.1 H RBC 4.48 Hgb 14.7 Hct 43.2 MCV 96.4 MCH 32.9 H MCHC 34.1 RDW 14.1 Plt Count 126 L MPV 9.5 Neut # (Auto) 12.2 H Lymph # (Auto) 0.2 L [place] # (Auto) 0.6 Eos # (Auto) 0.0 Baso # (Auto) 0.0 Absolute Nucleated RBC 0.00 Nucleated RBC % 0.0 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 14.2 H INR 1.3 H APTT 23.1 L Sodium 134 L Potassium 3.4 L Chloride 94 L Carbon Dioxide 30 Anion Gap 10.0 BUN 46 H Creatinine 1.2 H Estimated GFR (MDRD) 43 L Glucose 243 H Lactic Acid Calcium 8.1 L Total Bilirubin 3.5 H AST 37 ALT 50 Alkaline Phosphatase 90 Troponin I Total Protein 6.3 L Albumin 3.3 Globulin 3.0 Albumin/Globulin Ratio 1.1 Lipase 28 11/20/18 11/20/18 16:48 16:48 WBC RBC Hgb Hct MCV MCH MCHC RDW Plt Count MPV Neut # (Auto) Lymph # (Auto) [place] # (Auto) Eos # (Auto) Baso # (Auto) Absolute Nucleated RBC Nucleated RBC % Manual Slide Review PT INR APTT Sodium Potassium Chloride Carbon Dioxide Anion Gap BUN Creatinine Estimated GFR (MDRD) Glucose Lactic Acid 1.6 Calcium Total Bilirubin AST ALT Alkaline Phosphatase Troponin I 0.23 Total Protein Albumin Globulin Albumin/Globulin Ratio Lipase - Rads (name of study) CT head Radiology: Final report received, See rad report (1. Stable age-related cortical atrophic changes without evidence of acute intracranial abnormality. 2. Acute left maxillary sinusitis noted. ) CXR Radiology: Final report received, See rad report (IMPRESSION: Resolution of right base density. Stable tiny right effusion.) PD MEDICAL DECISION MAKING - ED course ED course: The patient is high risk and had a TIA today. The patient will require admission for observation given her high riskComorbidities. The findings and plan were discussed with the patient and her friend who understand and agree to the plan. The case was discussed with the hospitalist Dr. Childress who accepts the patient onto her service Departure - Departure Disposition: ED Place in Observation Clinical Impression: TIA (transient ischemic attack), Elevated troponin Acute sinusitis Qualifiers: Sinusitis location: unspecified location Recurrence: not specified as recurrent Qualified Code(s): J01.90 - Acute sinusitis, unspecified Condition: Fair
[2018-11-20 17:00] LABS: BASOPHILS % (AUTO) 0.3 %; HGB - HEMOGLOBIN 14.7 g/dL (12.0-16.0); LYMPHOCYTES # (AUTO) 0.2 10^3/uL (1.5-3.5); LYMPHOCYTES % (AUTO) 1.7 %; MEAN CORPUSCULAR HEMOGLOBIN 32.9 pg (27.0-31.0); MEAN CORPUSCULAR HGB CONC 34.1 g/dL (32.0-36.0); MEAN CORPUSCULAR VOLUME 96.4 fL (81.0-99.0); MEAN PLATELET VOLUME 9.5 fL (7.9-10.8); MONOCYTES # (AUTO) 0.6 10^3/uL (0.0-1.0); MONOCYTES % (AUTO) 4.7 %; NEUTROPHILS # (AUTO) 12.2 10^3/uL (1.5-6.6); NEUTROPHILS % (AUTO) 93.3 %; PLT - PLATELET COUNT 126 10^3/uL (130-450); RED BLOOD COUNT 4.48 10^6/uL (4.20-5.40); RED CELL DISTRIBUTION WIDTH 14.1 % (12.0-15.0); WHITE BLOOD COUNT 13.1 x10^3/uL (4.8-10.8)
[2018-11-20 17:03] LABS: INR 1.3 (0.8-1.2); PT - PROTHROMBIN TIME 14.2 secs (9.9-12.6)
[2018-11-20 17:12] LABS: PARTIAL THROMBOPLASTIN TIME 23.1 secs (24.9-33.3)
[2018-11-20 17:23] LABS: ALBUMIN 3.3 g/dL (3.2-5.5); ALBUMIN/GLOBULIN RATIO 1.1 (1.0-2.2); BILIRUBIN,TOTAL 3.5 mg/dL (0.2-1.0); CALCIUM 8.1 mg/dL (8.5-10.3); CREATININE 1.2 mg/dL (0.4-1.0); TOTAL PROTEIN 6.3 g/dL (6.7-8.2)
--- NOTE | 2018-11-20 17:42 | XRAY Report ---
Reason: cough Procedure Date: 11/20/2018 Accession Number: [id number] / [id number] Procedure: XR - Chest 2 View X-Ray CPT Code: 44799 FULL RESULT: EXAM: CHEST RADIOGRAPHY EXAM DATE: 11/20/2018 05:22 PM. CLINICAL HISTORY: Cough. COMPARISON: CHEST 1 VIEW 11/12/2018 12:15 PM. TECHNIQUE: 2 views. FINDINGS: Lungs/Pleura: Changes of COPD. No pneumothorax. Small right effusion. No pulmonary edema. Mediastinum: Enlarged cardiac silhouette. Other: None. IMPRESSION: Resolution of right base density. Stable tiny right effusion. RADIA
--- NOTE | 2018-11-20 17:52 | CT Report ---
Reason: right sided weakness Procedure Date: 11/20/2018 Accession Number: [id number] / [id number] Procedure: CT - HEAD WO CPT Code: FULL RESULT: EXAM: CT HEAD EXAM DATE: 11/20/2018 05:19 PM. CLINICAL HISTORY: Right sided weakness. COMPARISON: HEAD W/O 08/13/2017 3:48 PM. TECHNIQUE: Multiaxial CT images were obtained from the foramen magnum to the vertex. Reformats: Sagittal and coronal. IV contrast: None. In accordance with CT protocol optimization, one or more of the following dose reduction techniques were utilized for this exam: automated exposure control, adjustment of mA and/or KV based on patient size, or use of iterative reconstructive technique. FINDINGS: Parenchyma: No intraparenchymal hemorrhage. No evidence of mass, midline shift, or CT findings of acute infarction. Ibarra-white differentiation is distinct. Stable chronic microangiopathic white matter changes are evident. Extraaxial Spaces: Normal for age. No subdural or epidural collections identified. Ventricles: The ventricles and cortical sulci are prominent, consistent with age-related tissue loss. Sinuses and orbits: Opacified right mastoid air cells. Air-fluid level in the left maxillary sinus. Mucosal thickening in the right maxillary sinus. The imaged paranasal sinuses, orbits, and mastoids otherwise show no significant abnormality. Bones: No evidence of fracture or calvarial defect. Other: None. IMPRESSION: 1. Stable age-related cortical atrophic changes without evidence of acute intracranial abnormality. 2. Acute left maxillary sinusitis noted. RADIA
[2018-11-20] MEDS ORDERED: AMOX/CLAV 875 MG/125 MG TABLET PO STA ×2 (17:54→17:55)
[2018-11-20] MEDS ORDERED: ASPIRIN CHEW 81 MG TABLET PO STA (18:00)
[2018-11-20] MEDS ORDERED: ONDANSETRON ODT 4 MG TABLET TL PRN (18:01)
[2018-11-20] MEDS ORDERED: SODIUM CHLORIDE FLUSH 0.9% 10 ML SYRINGE IVP PRN (18:01)
[2018-11-20] MEDS ORDERED: ACETAMINOPHEN 325 MG TABLET PO PRN (18:01)
[2018-11-20] MEDS ORDERED: ONDANSETRON 4 MG/2 ML VIAL IVP PRN (18:01)
[2018-11-20] MEDS ORDERED: ATORVASTATIN 40 MG TABLET PO STA (18:06)
[2018-11-20] MEDS ORDERED: ASPIRIN 325 MG TABLET PO STA (18:06)
[2018-11-20] MEDS ORDERED: IOPAMIDOL-300 100 ML VIAL ONE (18:16)
[2018-11-20] MEDS ORDERED: IOPAMIDOL-300 100 ML VIAL IVP ONE (19:13)
--- NOTE | 2018-11-20 19:26 | HISTORY & PHYSICAL EXAMINATION ---
Chief Complaint - Chief Complaint Chief Complaint: Right hand weakness, gait disturbance with associated dysarthria Stroke/TIA/Neuro Template - Admitted From Admitted from: ED - History Obtained From Records Reviewed: RN notes reviewed, Old records reviewed History obtained from: Patient Exam limitations: No limitations - History of Present Illness HPI Comment/Other: This is a pleasant 83 y/o female wit hx of CVA, PAF, HLP, HTN, osteoporosis, nephrolithiasis, NIDDM type 2, PVD, CKD stage 3, Macular degeneration, gout, ch ronic back pain, and recently treated for a PNA with abx's and prednisone, presents the emergency department after an episode of right-sided weakness which occurred while at home. The patient reports having difficulty moving her extremities more so on the right side and the symptoms resolved after 2 minutes. Presently, the patient reports being at her baseline. The patient denies any other neurologic changes presently. The patient has had a cough and is recently been treated for pneumonia. No other associated symptoms. Presently the patient only reports a mild cough. No triggering factors. No relieving factors. On labs patient had LA 1.3, hyperglycemic at 243, Tbili 3.5, with mild electrolyte d/o as patient is on lasix, and lisinopril with known diabetic/hypertensive CKD--nephropathy, denies flank pain, fevers, or dysuria. 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 WBC was elevated at 13.1 with INR 1.3, plts of 126 w/o evidence of bleeding, epistaxis or GI/ issues. Prior ECHO on 12/2013 shows a hyperdynamic EF of 70-75% w/o any valvular disease. Patient still actively coughing, Currently with no sputum production but has expiratory rhonchi bilaterally on exam. PMH/PSH - Past Medical History Cardiovascular: positive: Hypertension, High cholesterol, Peripheral Vascular Disease, Atrial fibrillation Respiratory: positive: COPD, Pneumonia Neuro: positive: CVA Endocrine/Autoimmune: positive: Type 2 diabetes : positive: Renal insuffiency, Kidney stones HEENT: positive: Macular degeneration Musculoskeletal: positive: Osteoarthritis, Osteopenia, Gout, Chronic back pain Derm: positive: Other MRSA Hx?: No Other Past Medical History: CVA w/Rside resifual weakness - Past Surgical History General: positive: Appendectomy, Colonoscopy Ortho: positive: Hip replacement, Knee replacement, Arthroscopic surgery /ROAD GRADER: positive: Hysterectomy HEENT: positive: Cataracts Social & Family Hx - Social History Does the pt smoke?: No Smoking Status: Former smoker Does the pt drink ETOH?: No Does the pt have substance abuse?: No - POLST Patient has POLST: No Meds/Allgy - Home Medications Home Medications: Ambulatory Orders Medication Instructions Recorded Confirmed Warfarin Sodium 5 mg PO DAILY 10/10/14 11/12/18 Albuterol Sulfate [Ventolin Hfa] 1 - 2 puffs INH Q4H PRN 12/15/14 11/20/18 Atorvastatin [Lipitor] 10 mg PO DAILY 12/15/14 11/20/18 Cholecalciferol [Vitamin D3] 2,000 mg PO DAILY 12/15/14 11/20/18 Fluticasone/Salmeterol 500/50 1 puffs INH BID 12/15/14 11/20/18 [Advair 500 Mcg/50 Mcg] Lisinopril 30 mg PO DAILY 12/15/14 11/20/18 Montelukast Sodium [Singulair] 10 mg PO DAILY 12/15/14 11/20/18 Furosemide 20 mg PO DAILY 11/28/16 11/20/18 Cetirizine HCl [Allergy Relief] 10 mg PO DAILY 11/12/18 11/12/18 Doxycycline Hyclate 100 mg PO BID #20 capsule 11/12/18 predniSONE [Deltasone] 10 mg PO [id number] #25 tab 11/12/18 11/20/18 Metoprolol Tartrate [Lopressor] 50 mg PO BID 11/20/18 11/20/18 - Allergies Allergies/Adverse Reactions: Allergies Allergy/AdvReac Type Severity Reaction Status Date / Time No Known Drug Allergies Allergy Verified 08/18/17 10:35 Review of Systems - All Other Systems All Other Systems: reports: Reviewed and negative Prior Level of Functionality: Limited only by residual right upper extremity--hand deficits, otherwise independent with home ADL's Exam - Vital Signs Reviewed Vital Signs: Yes Vital Signs: Vital Signs x48h Temp Pulse Resp BP Pulse Ox 11/20/18 17:05 75 18 129/70 97 11/20/18 16:35 68 96 03/22/19 16:20 36.8 C 74 29 H 133/81 H 97 - Physical Exam General Appearance: positive: No acute distress, Alert Eyes Bilateral: positive: Normal inspection, PERRL, EOMI ENT: positive: ENT inspection nml, Pharynx nml, No signs of dehydration Neck: positive: Nml inspection, Thyroid nml, No JVD, Trachea midline. negative: Thyromegaly Respiratory: positive: Chest non-tender, No respiratory distress, Breath sounds nml Cardiovascular: positive: No murmur, No gallop, Irregularly irregular. negative: JVD present, Gallop/S3, Friction rub, Decreased pulse(s) Peripheral Pulses: positive: 2+ Abdomen: positive: Non-tender, No organomegaly, Nml bowel sounds, No distention. negative: Tenderness Back: positive: Nml inspection Skin: positive: Color nml, No rash, Warm Extremities: positive: Non-tender, Nml appearance. negative: Pedal edema Neurologic/Psychiatric: positive: Oriented x3 Babinski Reflex: Right: Absent, Left: Absent Results - Lab Results Lab results reviewed: Yes Fish Bones: 11/20/18 16:48 11/20/18 16:48 Other Lab Results: Lab Results x24hrs 11/20/18 11/20/18 11/20/18 Range/Units 16:48 16:48 16:48 WBC (4.8-10.8) x10^3/uL RBC (4.20-5.40) 10^6/uL Hgb (12.0-16.0) g/dL Hct (37.0-47.0) % MCV (81.0-99.0) fL MCH (27.0-31.0) pg MCHC (32.0-36.0) g/dL RDW (12.0-15.0) % Plt Count (130-450) 10^3/uL MPV (7.9-10.8) fL Neut # (Auto) (1.5-6.6) 10^3/uL Lymph # (Auto) (1.5-3.5) 10^3/uL [place] # (Auto) (0.0-1.0) 10^3/uL Eos # (Auto) (0.0-0.7) 10^3/uL Baso # (Auto) (0.0-0.1) 10^3/uL Absolute Nucleated RBC x10^3/uL Nucleated RBC % /100WBC Manual Slide Review PT (9.9-12.6) secs INR (0.8-1.2) APTT (24.9-33.3) secs Sodium 134 L (135-145) mmol/L Potassium 3.4 L (3.5-5.0) mmol/L Chloride 94 L (101-111) mmol/L Carbon Dioxide 30 (21-32) mmol/L Anion Gap 10.0 (6-13) BUN 46 H (6-20) mg/dL Creatinine 1.2 H (0.4-1.0) mg/dL Estimated GFR (MDRD) 43 L (>89) Glucose 243 H (70-100) mg/dL Lactic Acid 1.6 (0.5-2.2) mmol/L Calcium 8.1 L (8.5-10.3) mg/dL Total Bilirubin 3.5 H (0.2-1.0) mg/dL AST 37 (10-42) IU/L ALT 50 (10-60) IU/L Alkaline Phosphatase 90 (42-121) IU/L Troponin I 0.23 (<0.49) ng/mL Total Protein 6.3 L (6.7-8.2) g/dL Albumin 3.3 (3.2-5.5) g/dL Globulin 3.0 (2.1-4.2) g/dL Albumin/Globulin Ratio 1.1 (1.0-2.2) Lipase 28 (22-51) U/L 11/20/18 11/20/18 Range/Units 16:48 16:48 WBC 13.1 H (4.8-10.8) x10^3/uL RBC 4.48 (4.20-5.40) 10^6/uL Hgb 14.7 (12.0-16.0) g/dL Hct 43.2 (37.0-47.0) % MCV 96.4 (81.0-99.0) fL MCH 32.9 H (27.0-31.0) pg MCHC 34.1 (32.0-36.0) g/dL RDW 14.1 (12.0-15.0) % Plt Count 126 L (130-450) 10^3/uL MPV 9.5 (7.9-10.8) fL Neut # (Auto) 12.2 H (1.5-6.6) 10^3/uL Lymph # (Auto) 0.2 L (1.5-3.5) 10^3/uL [place] # (Auto) 0.6 (0.0-1.0) 10^3/uL Eos # (Auto) 0.0 (0.0-0.7) 10^3/uL Baso # (Auto) 0.0 (0.0-0.1) 10^3/uL Absolute Nucleated RBC 0.00 x10^3/uL Nucleated RBC % 0.0 /100WBC Manual Slide Review ARCHITECTURE INSTRUCTOR PT 14.2 H (9.9-12.6) secs INR 1.3 H (0.8-1.2) APTT 23.1 L (24.9-33.3) secs Sodium (135-145) mmol/L Potassium (3.5-5.0) mmol/L Chloride (101-111) mmol/L Carbon Dioxide (21-32) mmol/L Anion Gap (6-13) BUN (6-20) mg/dL Creatinine (0.4-1.0) mg/dL Estimated GFR (MDRD) (>89) Glucose (70-100) mg/dL Lactic Acid (0.5-2.2) mmol/L Calcium (8.5-10.3) mg/dL Total Bilirubin (0.2-1.0) mg/dL AST (10-42) IU/L ALT (10-60) IU/L Alkaline Phosphatase (42-121) IU/L Troponin I (<0.49) ng/mL Total Protein (6.7-8.2) g/dL Albumin (3.2-5.5) g/dL Globulin (2.1-4.2) g/dL Albumin/Globulin Ratio (1.0-2.2) Lipase (22-51) U/L - Diagnostic Imaging Results Diagnostic Imaging Results: positive: Final report reviewed (CT Head reviewed) - EKG Results EKG Interpreted Independently: Yes EKG Comparison: positive: Old EKG unavailable Sepsis Event Note (H) - Evaluation Current Stage of Sepsis: Ruled out (elevated WBC sec to prednisone) Impression/Plan - Problem List Problem List: Assessment: 1. TIA with possible subacute CVA seen on CTA. 2. Caratid artery disease with hx right carotid endardectomy 3. Controlled rate Afib with Chadsvasc of 8pts>10.8% stroke risk/yr, on ASA, Abnormal EKG with sinus bradycardia in the 30s asymptomatic with pauses 4. Right hand weakness with associated dysarthria which are resolved and back to baseline 5. Uncontrolled type 2 diabetes mellitus 6. CKD stage 3 7. Acute mild dehydration with mild electrolyte disturbance 8. Leukocytosis sec to steroids 9. COPD on advair and steroids with recently treated PNA 10. PVD on statin and ASA 11. Advance care planning/counseling 12. Osteoporosis/Osteopenia Plan: Admit to obs/tele, neurochecks q shift, patient back to baseline with residual righthand weakness w/o and speech difficulties, place on carb controlled diet with ISS correctional dosing, TSH, HgbA1c to follow, along with TIA w/u, echo, labs, ecg shows controlled rate afib which is rate-controlled but taken off coumadin due to ataxia/vertigo issues. Would place on eliquis at low dose 2.5 mg po bid with benefit on a case by case basis on patients >80 y/o. Diabetes education and counseling although patients prednisone use may have contributed as well as leukocytosis. Would restart lipitor but at moderate to hi gh intesity dosage, lopressor decrease to 25 mg po bid with parameters and lisinopril 5 mg po daily, hold lasix for now due to renal insufficiency and some electrolyte abnormalities with prerenal zotemia although baseline in 1.2-1.9 on her labs ion [employer]. Fasting lipid in am, labs to follow. IVF's, avoid nephrotoxic agents. DVT ppx with SCD's as patient will be on ASA and eliquis, GI ppx withH2 cam. Discussion with patient on code status along with chronic CV comorbidities have been reviewed and discussed in length in terms of disease mgmt, disease trajectory as well as complications. Osteoporosis consult ordered to cont with vit/calcium DEXA on 02/21/14 shows osteopenia to L-spine. Patient has expiratory rhonchi on exam and actively coughing with no fevers, WBC elevated however denies recent steroids, will place on duo nebs as needed along with pulmonary toileting reinitiate Singulair and [place] incentive spirometry. Would continue with Augmentin 875 mg p.o. twice daily. We will hold Lopressor due to patient's asymptomatic sinus bradycardia in the 30s with pauses. Echocardiogram to follow to assess for structural heart disease. We will instead placed on IV Lopressor as needed for RVR A. fib heart rate above 120 bpm. CTA head shows 1.5 mm arcuate focus of cortical-based enhancement seen in the inferolateral right parietal lobe deep within the sulcus. May represent subacute ischemia. CTA neck shows marked atherosclerosis with a right carotid circulation w/ signs of carotid endardectomy, mild 40% stenosis present. Left ICA shows 25% stenosis. Right and left vertebral artery shows severe stenosis. CTA head MCA, PICA patent, Basilar artery with possible occlusion of the distal P2 segment of the right STRIPE MARKER secondary to atherosclerosis or intraluminal thrombus. Aggressive medical mgmt indicated with mod-high intensity statin, ASA and controlling underlying CV comorbidites, glycemic control, avoiding BP precipitous drops, eliquis for afib, lopressor on hold due to sinus jef, ECHO may show structural heart disease. MRI brain to follow. Code Status: DNR. Core Measures - Anticipated LOS I expect patient to be DC'd or transferred within 96 hours.: Yes - Issues Hospital Issues and Management Plan: TIA workup, PT, med mgmt - DVT/VTE - Prophylaxis VTE/DVT Device ordered at admit?: Yes VTE/DVT Prophylaxis med ordered at admit?: No Not Ordered - Medical Reason: Not indicated (Will be placed on eliquis) - Stroke - Rehab Assessment Rehab services assessment to be ordered?: No Not Ordered - Medical Reason: Not indicated - AMI - Statin at Admit Aspirin Prescribed on Admit: Yes
[2018-11-20 19:58] LABS: HB2 TOTAL 16.1 g/dL; HEMOGLOBIN A1C 0.83 g/dL; HEMOGLOBIN A1C % 6.9 % (4.6-6.2)
[2018-11-20 20:25] LABS: BILIRUBIN,URINE NEGATIVE (NEGATIVE); GLUCOSE, URINE (UA) NEGATIVE (NEGATIVE); KETONES,URINE (UA) NEGATIVE (NEGATIVE); LEUKOCYTE ESTERASE, URINE NEGATIVE (NEGATIVE); NITRITE,URINE NEGATIVE (NEGATIVE); OCCULT BLOOD,URINE NEGATIVE (NEGATIVE); PROTEIN,URINE NEGATIVE (NEGATIVE); UROBILINOGEN,URINE 0.2 (NORMAL) E.U./dL (NORMAL)
[2018-11-20 20:27] LABS: CLARITY,URINE CLEAR (CLEAR)
--- NOTE | 2018-11-20 20:56 | CT Report ---
Reason: tia, right weak, CT head neg. Procedure Date: 11/20/2018 Accession Number: [id number] / [id number] Procedure: CT - ANGIO NECK W/WO CPT Code: FULL RESULT: EXAM: CT ANGIOGRAM HEAD AND NECK. CT SCAN HEAD WITHOUT AND WITH CONTRAST. EXAM DATE: 11/20/2018 07:11 PM. CLINICAL HISTORY: TIA, right weak, CT head neg. COMPARISON: CT scan of the head without contrast 11/20/2018 at 1714 hours. HEAD W/O 08/13/2017 3:48 PM. TECHNIQUE: Routine axial helical CTA imaging was performed from the aortic arch through the [place] of [place]. Routine axial CT imaging of the head was performed prior to and following contrast administration. Reconstructions: Routine multiplanar 3D MIP reconstructions. IV contrast: ISOVUE 300 70mL. NASCET Criteria are used for stenosis measurements. In accordance with CT protocol optimization, one or more of the following dose reduction techniques were utilized for this exam: automated exposure control, adjustment of mA and/or KV based on patient size, or use of iterative reconstructive technique. FINDINGS: CT SCAN HEAD POSTCONTRAST: Parenchyma: Age-related atrophy is present. Moderate patchy white matter hypodensity is appreciated. Arcuate 5 mm focus of cortical-based enhancement is seen in the inferolateral right parietal lobe deep within the sulcus. Extra-axial Spaces: Prominence to sulci and cisterns is noted. No subdural or epidural collections identified. Ventricles: No hydrocephalus. Sinuses and Orbits: Layering fluid level is seen in the left maxillary antrum. Polypoid mucosal thickening is seen inferiorly in the right maxillary sinus. Partial opacification is seen involving anterior and mid ethmoid air cells. Poor pneumatization of peripheral mastoid air cells is seen. Opacification of right mastoid antrum is seen. Partial opacification of the right middle ear cavity is noted. Bones: No evidence of fracture or calvarial defect. Marked erosive degenerative changes seen in the TMJ bilaterally. CT ANGIOGRAM EXTRACRANIAL CIRCULATION: Marked tortuosity and atherosclerotic calcification is seen involving the aortic arch and great vessels off the arch. Normal three-vessel branching is seen. The great vessels are patent. Right Carotid: The CCA is patent. Surgical clips are seen about the carotid sheath suggestive of previous carotid endarterectomy. Focal intimal thickening is seen in the proximal ICA with arcuate deformity of the underlying vessel lumen. Mild, 40%, stenosis. Cervical ICA is patent. No dissection. The ECA is patent. Left Carotid: The CCA is patent. Marked atherosclerotic calcification is seen anterolaterally in the distal CCA. Mild, 35%, stenosis is seen. Marked atherosclerotic calcification is seen at the CCA bifurcation and proximal ICA. Mild, 25%, stenosis is seen. No dissection. The ECA is patent. Vertebrals: The vertebral arteries are codominant. Atherosclerotic changes seen throughout the vertebral arteries. Right vertebral artery: Atherosclerotic calcification is seen at the origin. This limits evaluation of stenosis. There likely is moderate to severe stenosis. Punctate atherosclerotic calcification is seen in the proximal V2 segment without significant stenosis. The V3 segment is patent. Atherosclerotic calcification is seen in the proximal V4 segment with multilevel moderate to severe stenosis. Left vertebral artery: Atherosclerotic calcification is seen at the origin. This limits evaluation of stenosis. There likely is moderate to severe stenosis present. Atherosclerotic calcification is seen in the distal V1 segment with mild stenosis. Punctate atherosclerotic calcification is seen in the V2 segment without significant stenosis. The V3 segment is patent. Mild atherosclerotic calcification is seen in the proximal V4 segment with mild stenosis. CT ANGIOGRAM INTRACRANIAL CIRCULATION: Right carotid circulation: Marked vascular calcification is seen in the cavernous and proximal supracavernous ICA. Tandem severe stenoses are present. Moderate stenosis is seen in the supracavernous segment as well. No aneurysm. The ICA terminates as the MCA. The MCA is patent. No significant stenosis. No aneurysm. Left carotid circulation: Marked vascular calcification is seen in the cavernous and proximal supracavernous segments. Moderate to severe tandem stenoses are present. origin of the left BED MAKER is seen as continuation of the P-comm. The P1 segment off the basilar tip is aplastic or markedly hypoplastic. The left BED MAKER is patent and unremarkable. The MCA is patent and unremarkable. The left A1 segment is dominant supplying bilateral DIANNA through a patent A-comm. The DIANNA are patent. Posterior circulation: Atherosclerotic changes seen involving V4 segments of the vertebral arteries bilaterally, greater on the right. Moderate to severe stenosis is seen in the right proximal V4 segment. Mild stenosis is seen in the left proximal V4 segment. Left PICA is not identified. Right PICA arises from the mid V4 segment distal to the calcifications. The basilar artery is patent. Bilateral AICA are patent. Origin of the left AICA is seen from the distal basilar artery. Bilateral superior cerebellar arteries are patent. The basilar artery terminates as the right BED MAKER. The P1 and proximal P2 segments are patent. Occlusion of the distal P2 segment is seen. Faint opacification of the terminal branches is noted. The dural venous sinuses are patent. Other: The lung apices are clear. The visualized muscle and fascial planes of the neck are unremarkable. Diffuse osteopenia is present. Moderate hypertrophic spondylosis is seen throughout the cervical spine. Mild spondylolisthesis is seen at C7-T1. IMPRESSION: CT SCAN HEAD POSTCONTRAST: 1. 5 mm arcuate focus of cortical-based enhancement seen in the inferolateral right parietal lobe deep within the sulcus. Etiology of this is unknown. This could represent sequela of subacute ischemia. Correlation with MRI could be considered. 2. Moderate white matter hypodensity is seen in the cerebral hemispheres. This is nonspecific. This can be seen secondary to small vessel ischemic change. CT ANGIOGRAM NECK: 1. Marked atherosclerotic change involving the aortic arch and great vessels off the arch. 2. Right carotid circulation: Apparent postoperative change from carotid endarterectomy. Hypodense intimal thickening is seen at the origin of the ICA which could be secondary to neointimal hyperplasia rather than atherosclerotic change or subintimal hemorrhage. Mild, 40%, stenosis is present. 3. Left carotid circulation: Atherosclerotic calcification is seen in the distal CCA as well as bifurcation and proximal ICA. Mild, 35%, stenosis is seen in the distal CCA. Mild, 25%, stenosis is seen in the proximal ICA. 4. Right vertebral artery: Scattered atherosclerotic change. Atherosclerotic calcification at the origin limits evaluation of stenosis. There likely is severe stenosis. 5. Left vertebral artery: Scattered atherosclerotic change. Atherosclerotic calcification at the origin limits evaluation of stenosis. There likely is severe stenosis. CT ANGIOGRAM HEAD: 1. Right carotid circulation: Marked atherosclerotic change in the ICA. Tandem moderate to severe stenoses are present. -ICA terminates as the MCA which is patent. -A1 segment is aplastic or markedly hypoplastic. 2. Left carotid circulation: Marked atherosclerotic change in the ICA. Tandem moderate to severe stenoses are present. -MCA is patent and unremarkable. -A1 segment is dominant supplying bilateral DIANNA. - origin of the BED MAKER is seen. The left BED MAKER is unremarkable. 3. Right vertebral artery demonstrates atherosclerotic calcification in its proximal segment. Multiple moderate to severe stenosis is present. Distal to this, patent right PICA is seen. 4. Left vertebral artery: Mild atherosclerotic calcification is seen in the proximal V4 segment with mild stenosis. 5. Basilar artery patent and unremarkable. 6. Basilar artery terminates as the right BED MAKER. There is occlusion of the distal P2 segment of the right BED MAKER. This could be secondary to atherosclerotic change or intraluminal thrombus. RADIA
--- NOTE | 2018-11-20 20:57 | CT Report ---
Reason: tia, right weakness, CT head neg Procedure Date: 11/20/2018 Accession Number: [id number] / [id number] Procedure: CT - ANGIO HEAD W CPT Code: FULL RESULT: EXAM: CT ANGIOGRAM HEAD AND NECK. CT SCAN HEAD WITHOUT AND WITH CONTRAST. EXAM DATE: 11/20/2018 07:11 PM. CLINICAL HISTORY: TIA, right weak, CT head neg. COMPARISON: CT scan of the head without contrast 11/20/2018 at 1714 hours. HEAD W/O 08/13/2017 3:48 PM. TECHNIQUE: Routine axial helical CTA imaging was performed from the aortic arch through the [place]. Routine axial CT imaging of the head was performed prior to and following contrast administration. Reconstructions: Routine multiplanar 3D MIP reconstructions. IV contrast: ISOVUE 300 70mL. NASCET Criteria are used for stenosis measurements. In accordance with CT protocol optimization, one or more of the following dose reduction techniques were utilized for this exam: automated exposure control, adjustment of mA and/or KV based on patient size, or use of iterative reconstructive technique. FINDINGS: CT SCAN HEAD POSTCONTRAST: Parenchyma: Age-related atrophy is present. Moderate patchy white matter hypodensity is appreciated. Arcuate 5 mm focus of cortical-based enhancement is seen in the inferolateral right parietal lobe deep within the sulcus. Extra-axial Spaces: Prominence to sulci and cisterns is noted. No subdural or epidural collections identified. Ventricles: No hydrocephalus. Sinuses and Orbits: Layering fluid level is seen in the left maxillary antrum. Polypoid mucosal thickening is seen inferiorly in the right maxillary sinus. Partial opacification is seen involving anterior and mid ethmoid air cells. Poor pneumatization of peripheral mastoid air cells is seen. Opacification of right mastoid antrum is seen. Partial opacification of the right middle ear cavity is noted. Bones: No evidence of fracture or calvarial defect. Marked erosive degenerative changes seen in the TMJ bilaterally. CT ANGIOGRAM EXTRACRANIAL CIRCULATION: Marked tortuosity and atherosclerotic calcification is seen involving the aortic arch and great vessels off the arch. Normal three-vessel branching is seen. The great vessels are patent. Right Carotid: The CCA is patent. Surgical clips are seen about the carotid sheath suggestive of previous carotid endarterectomy. Focal intimal thickening is seen in the proximal ICA with arcuate deformity of the underlying vessel lumen. Mild, 40%, stenosis. Cervical ICA is patent. No dissection. The ECA is patent. Left Carotid: The CCA is patent. Marked atherosclerotic calcification is seen anterolaterally in the distal CCA. Mild, 35%, stenosis is seen. Marked atherosclerotic calcification is seen at the CCA bifurcation and proximal ICA. Mild, 25%, stenosis is seen. No dissection. The ECA is patent. Vertebrals: The vertebral arteries are codominant. Atherosclerotic changes seen throughout the vertebral arteries. Right vertebral artery: Atherosclerotic calcification is seen at the origin. This limits evaluation of stenosis. There likely is moderate to severe stenosis. Punctate atherosclerotic calcification is seen in the proximal V2 segment without significant stenosis. The V3 segment is patent. Atherosclerotic calcification is seen in the proximal V4 segment with multilevel moderate to severe stenosis. Left vertebral artery: Atherosclerotic calcification is seen at the origin. This limits evaluation of stenosis. There likely is moderate to severe stenosis present. Atherosclerotic calcification is seen in the distal V1 segment with mild stenosis. Punctate atherosclerotic calcification is seen in the V2 segment without significant stenosis. The V3 segment is patent. Mild atherosclerotic calcification is seen in the proximal V4 segment with mild stenosis. CT ANGIOGRAM INTRACRANIAL CIRCULATION: Right carotid circulation: Marked vascular calcification is seen in the cavernous and proximal supracavernous ICA. Tandem severe stenoses are present. Moderate stenosis is seen in the supracavernous segment as well. No aneurysm. The ICA terminates as the MCA. The MCA is patent. No significant stenosis. No aneurysm. Left carotid circulation: Marked vascular calcification is seen in the cavernous and proximal supracavernous segments. Moderate to severe tandem stenoses are present. origin of the left [employer] is seen as continuation of the P-comm. The P1 segment off the basilar tip is aplastic or markedly hypoplastic. The left [employer] is patent and unremarkable. The MCA is patent and unremarkable. The left A1 segment is dominant supplying bilateral DIANNA through a patent A-comm. The DIANNA are patent. Posterior circulation: Atherosclerotic changes seen involving V4 segments of the vertebral arteries bilaterally, greater on the right. Moderate to severe stenosis is seen in the right proximal V4 segment. Mild stenosis is seen in the left proximal V4 segment. Left PICA is not identified. Right PICA arises from the mid V4 segment distal to the calcifications. The basilar artery is patent. Bilateral AICA are patent. Origin of the left AICA is seen from the distal basilar artery. Bilateral superior cerebellar arteries are patent. The basilar artery terminates as the right [employer]. The P1 and proximal P2 segments are patent. Occlusion of the distal P2 segment is seen. Faint opacification of the terminal branches is noted. The dural venous sinuses are patent. Other: The lung apices are clear. The visualized muscle and fascial planes of the neck are unremarkable. Diffuse osteopenia is present. Moderate hypertrophic spondylosis is seen throughout the cervical spine. Mild spondylolisthesis is seen at C7-T1. IMPRESSION: CT SCAN HEAD POSTCONTRAST: 1. 5 mm arcuate focus of cortical-based enhancement seen in the inferolateral right parietal lobe deep within the sulcus. Etiology of this is unknown. This could represent sequela of subacute ischemia. Correlation with MRI could be considered. 2. Moderate white matter hypodensity is seen in the cerebral hemispheres. This is nonspecific. This can be seen secondary to small vessel ischemic change. CT ANGIOGRAM NECK: 1. Marked atherosclerotic change involving the aortic arch and great vessels off the arch. 2. Right carotid circulation: Apparent postoperative change from carotid endarterectomy. Hypodense intimal thickening is seen at the origin of the ICA which could be secondary to neointimal hyperplasia rather than atherosclerotic change or subintimal hemorrhage. Mild, 40%, stenosis is present. 3. Left carotid circulation: Atherosclerotic calcification is seen in the distal CCA as well as bifurcation and proximal ICA. Mild, 35%, stenosis is seen in the distal CCA. Mild, 25%, stenosis is seen in the proximal ICA. 4. Right vertebral artery: Scattered atherosclerotic change. Atherosclerotic calcification at the origin limits evaluation of stenosis. There likely is severe stenosis. 5. Left vertebral artery: Scattered atherosclerotic change. Atherosclerotic calcification at the origin limits evaluation of stenosis. There likely is severe stenosis. CT ANGIOGRAM HEAD: 1. Right carotid circulation: Marked atherosclerotic change in the ICA. Tandem moderate to severe stenoses are present. -ICA terminates as the MCA which is patent. -A1 segment is aplastic or markedly hypoplastic. 2. Left carotid circulation: Marked atherosclerotic change in the ICA. Tandem moderate to severe stenoses are present. -MCA is patent and unremarkable. -A1 segment is dominant supplying bilateral DIANNA. - origin of the [employer]IAN is seen. The left [employer]IAN is unremarkable. 3. Right vertebral artery demonstrates atherosclerotic calcification in its proximal segment. Multiple moderate to severe stenosis is present. Distal to this, patent right PICA is seen. 4. Left vertebral artery: Mild atherosclerotic calcification is seen in the proximal V4 segment with mild stenosis. 5. Basilar artery patent and unremarkable. 6. Basilar artery terminates as the right [employer]. There is occlusion of the distal P2 segment of the right [employer]. This could be secondary to atherosclerotic change or intraluminal thrombus. RADIA
[2018-11-20] MEDS ORDERED: METOPROLOL TARTRATE 50 MG TABLET PO SCH (21:00)
[2018-11-20] MEDS ORDERED: AMOX/CLAV 875 MG/125 MG TABLET PO SCH (21:00)
[2018-11-20] MEDS ORDERED: METOPROLOL 5 MG/5 ML VIAL IVP PRN (21:07)
[2018-11-20] MEDS: APIXABAN 2.5 MG TABLET PO SCH (21:18)
[2018-11-20] MEDS: INSULIN ASPART 300 UNIT/3 ML PEN SUBQ SCH (21:19)
[2018-11-21] MEDS: SODIUM CHLORIDE FLUSH 0.9% 10 ML SYRINGE IVP SCH ×3 (00:12→17:00)
[2018-11-21] MEDS: IPRATROPIUM/ALBUTEROL 3 ML NEB INH PRN ×2 (05:19→08:59)
[2018-11-21 07:58] LABS: BASOPHILS # (AUTO) 0.1 10^3/uL (0.0-0.1); EOSINOPHILS % (AUTO) 0.3 %; HGB - HEMOGLOBIN 14.3 g/dL (12.0-16.0); LYMPHOCYTES # (AUTO) 0.4 10^3/uL (1.5-3.5); LYMPHOCYTES % (AUTO) 3.1 %; MEAN CORPUSCULAR HEMOGLOBIN 32.9 pg (27.0-31.0); MEAN CORPUSCULAR HGB CONC 34.3 g/dL (32.0-36.0); MEAN PLATELET VOLUME 9.9 fL (7.9-10.8); MONOCYTES # (AUTO) 1.1 10^3/uL (0.0-1.0); MONOCYTES % (AUTO) 8.7 %; NEUTROPHILS # (AUTO) 10.8 10^3/uL (1.5-6.6); NEUTROPHILS % (AUTO) 86.9 %; PLT - PLATELET COUNT 125 10^3/uL (130-450); RED BLOOD COUNT 4.33 10^6/uL (4.20-5.40); RED CELL DISTRIBUTION WIDTH 13.8 % (12.0-15.0); WHITE BLOOD COUNT 12.4 x10^3/uL (4.8-10.8)
[2018-11-21 08:20] LABS: BUN - BLOOD UREA NITROGEN 40 mg/dL (6-20); CALCIUM 7.9 mg/dL (8.5-10.3); CARBON DIOXIDE - CO2 30 mmol/L (21-32); CHLORIDE 97 mmol/L (101-111); CHOL/HDL RATIO 3.1 (<4.4); CHOLESTEROL 130 mg/dL; CREATININE 1.1 mg/dL (0.4-1.0); GFR - MDRD 48 (>89); GLUCOSE 134 mg/dL (70-100); HDL CHOLESTEROL 42 mg/dL; LDL CHOLESTEROL,CALCULATED 71 mg/dL; LDL/HDL RATIO 1.7 (<4.4); SODIUM 137 mmol/L (135-145); VLDL CHOLESTEROL 17 mg/dL
[2018-11-21] MEDS ORDERED: POTASSIUM CHLORIDE 20 MEQ TABLET PO ONE (08:22)
[2018-11-21] MEDS: CHOLECALCIFEROL 1,000 UNIT TABLET PO SCH (08:50)
[2018-11-21] MEDS: oxyCODONE 5 MG TABLET PO PRN (08:50)
[2018-11-21] MEDS: ATORVASTATIN 40 MG TABLET PO SCH (08:51)
[2018-11-21] MEDS: LISINOPRIL 5 MG TABLET PO SCH (08:51)
[2018-11-21] MEDS: MONTELUKAST 10 MG TABLET PO SCH (08:51)
[2018-11-21] MEDS: CETIRIZINE 10 MG TABLET PO SCH (08:51)
[2018-11-21] MEDS: ASPIRIN CHEW 81 MG TABLET PO SCH (08:52)
[2018-11-21] MEDS: APIXABAN 2.5 MG TABLET PO SCH ×2 (08:52→21:00)
[2018-11-21] MEDS: cephALEXin 250 MG CAPSULE PO SCH ×4 (08:54→23:30)
[2018-11-21] MEDS: INSULIN ASPART 300 UNIT/3 ML PEN SUBQ SCH ×4 (08:55→21:00)
[2018-11-21] MEDS: POLYETHYLENE GLYCOL 3350 17 GM PACKET PO SCH (08:55)
[2018-11-21] MEDS: FORMOTEROL FUMARATE NEB 20 MCG/2 ML INH SCH ×2 (08:59→22:20)
[2018-11-21 09:07] LABS: ALBUMIN/GLOBULIN RATIO 1.1 (1.0-2.2); BILIRUBIN,TOTAL 2.9 mg/dL (0.2-1.0); CALCIUM 8.1 mg/dL (8.5-10.3); CREATININE 1.1 mg/dL (0.4-1.0); TOTAL PROTEIN 5.8 g/dL (6.7-8.2)
--- NOTE | 2018-11-21 14:51 | PROVIDER PROGRESS NOTE ---
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 pt report she feel her strength is better. she denies headache, chest pain, SOB Current Medications - Current Medications Current Medications: Active Medications Acetaminophen (Tylenol) 650 mg PO Q4HR PRN PRN Reason: Pain 1 to 4 Albuterol/Ipratropium (Duoneb) 3 ml INH Q4HR PRN PRN Reason: Wheezing Last Admin: 11/21/18 08:59 Dose: 3 ml Apixaban (Eliquis) 2.5 mg PO BID [facility] Last Admin: 11/21/18 08:52 Dose: 2.5 mg Aspirin ([facility] [place] Aspirin) 81 mg PO DAILY [facility] Last Admin: 11/21/18 08:52 Dose: 81 mg Atorvastatin Calcium (Lipitor) 40 mg PO DAILY [facility] Last Admin: 11/21/18 08:51 Dose: 40 mg Cephalexin (Keflex) 250 mg PO Q6HR [facility] Last Admin: 11/21/18 11:33 Dose: 250 mg Cetirizine HCl (Zyrtec) 10 mg PO DAILY [facility] Last Admin: 11/21/18 08:51 Dose: 10 mg Cholecalciferol (Vitamin D3) 2,000 unit PO DAILY [facility] Last Admin: 11/21/18 08:50 Dose: 2,000 unit Formoterol Fumarate (Perforomist) 20 mcg INH RTBID [facility] Last Admin: 11/21/18 08:59 Dose: 20 mcg Insulin Aspart (Novolog) 2 - 10 unit SUBQ 0800,1200,1700,2100 [facility]; Protocol Last Admin: 11/21/18 11:33 Dose: 2 unit Lisinopril (Zestril) 5 mg PO DAILY [facility] Last Admin: 11/21/18 08:51 Dose: 5 mg Metoprolol Tartrate (Lopressor Inj) 5 mg IVP Q4HR PRN PRN Reason: RVR afib HR>120 Montelukast Sodium (Singulair) 10 mg PO DAILY [facility] Last Admin: 11/21/18 08:51 Dose: 10 mg Ondansetron HCl (Zofran Inj) 4 mg IVP Q6HR PRN PRN Reason: Nausea / Vomiting Ondansetron HCl (Zofran Odt) 4 mg TL Q6HR PRN PRN Reason: Nausea / Vomiting Oxycodone HCl (Roxicodone) 5 mg PO Q4HR PRN PRN Reason: Pain 5 to 7 Last Admin: 11/21/18 08:50 Dose: 5 mg Polyethylene Glycol (Miralax) 17 gm PO DAILY [facility] Last Admin: 11/21/18 08:55 Dose: Not Given Sodium Chloride (Normal Saline Flush 0.9%) 10 ml IVP PRN PRN PRN Reason: NEEDED PER PROVIDER ORDERS Sodium Chloride (Normal Saline Flush 0.9%) 10 ml IVP 0100,0900,1700 [facility] Last Admin: 11/21/18 11:37 Dose: 10 ml Albuterol Sulfate [Ventolin Hfa] 1 - 2 puffs INH Q4H PRN 12/15/14 Atorvastatin [Lipitor] 10 mg PO DAILY 12/15/14 Cholecalciferol [Vitamin D3] 2,000 unit PO DAILY 12/15/14 Fluticasone/Salmeterol 500/50 [Advair 500 Mcg/50 Mcg] 1 puffs INH BID 12/15/14 Lisinopril 30 mg PO DAILY 12/15/14 Montelukast Sodium [Singulair] 10 mg PO DAILY 12/15/14 Furosemide 20 mg PO DAILY 11/28/16 Cetirizine HCl [Allergy Relief] 10 mg PO DAILY 11/12/18 Metoprolol Tartrate [Lopressor] 50 mg PO BID 11/20/18 Objective - Vital Signs/Intake & Output Reviewed Vital Signs: Yes Vital Signs: Vital Signs x48h Temp Pulse Pulse Pulse Resp Resp BP 11/21/18 11:58 79 12 11/21/18 11:50 36.5 C 96 18 119/70 11/21/18 09:02 74 16 11/21/18 08:00 36.3 C L 82 18 148/82 H BP Pulse Ox Pulse Ox 11/21/18 11:58 148/82 H 94 11/21/18 11:50 95 11/21/18 09:02 11/21/18 08:00 98 Intake & Output: Intake & Output 11/18/18 11/19/18 11/20/18 11/21/18 23:59 23:59 23:59 23:59 Intake Total 520 Output Total 1 Balance 519 - Objective General Appearance: positive: No acute distress, Alert. negative: Lethargic - Lab Results Fish Bones: 11/21/18 07:30 11/21/18 08:49 Other Labs: Lab Results x24hrs 11/21/18 11/21/18 11/21/18 Range/Units 09:00 08:49 07:30 WBC (4.8-10.8) x10^3/uL RBC (4.20-5.40) 10^6/uL Hgb (12.0-16.0) g/dL Hct (37.0-47.0) % MCV (81.0-99.0) fL MCH (27.0-31.0) pg MCHC (32.0-36.0) g/dL RDW (12.0-15.0) % Plt Count (130-450) 10^3/uL MPV (7.9-10.8) fL Neut # (Auto) (1.5-6.6) 10^3/uL Lymph # (Auto) (1.5-3.5) 10^3/uL [place] # (Auto) (0.0-1.0) 10^3/uL Eos # (Auto) (0.0-0.7) 10^3/uL Baso # (Auto) (0.0-0.1) 10^3/uL Absolute Nucleated RBC x10^3/uL Nucleated RBC % /100WBC Manual Slide Review PT (9.9-12.6) secs INR (0.8-1.2) APTT (24.9-33.3) secs Sodium 137 (135-145) mmol/L Potassium 3.5 (3.5-5.0) mmol/L Chloride 96 L (101-111) mmol/L Carbon Dioxide 32 (21-32) mmol/L Anion Gap 9.0 (6-13) BUN 41 H (6-20) mg/dL Creatinine 1.1 H (0.4-1.0) mg/dL Estimated GFR (MDRD) 48 L (>89) Glucose 132 H (70-100) mg/dL Glycated Hemoglobin (4.6-6.2) % Estim Average Glucose (70-100) Lactic Acid (0.5-2.2) mmol/L Calcium 8.1 L (8.5-10.3) mg/dL Total Bilirubin 2.9 H (0.2-1.0) mg/dL AST 30 (10-42) IU/L ALT 42 (10-60) IU/L Alkaline Phosphatase 76 (42-121) IU/L Troponin I (<0.49) ng/mL Total Protein 5.8 L (6.7-8.2) g/dL Albumin 3.0 L (3.2-5.5) g/dL Globulin 2.8 (2.1-4.2) g/dL Albumin/Globulin Ratio 1.1 (1.0-2.2) Triglycerides ( - 149) mg/dL Cholesterol ( - 199) mg/dL LDL Cholesterol, Calc ( - 129) mg/dL VLDL Cholesterol mg/dL HDL Cholesterol (60 - ) mg/dL LDL/HDL Ratio (<4.4) Cholesterol/HDL Ratio (<4.4) Lipase (22-51) U/L TSH 1.67 (0.34-5.60) uIU/mL Urine Color Urine Clarity (CLEAR) Urine pH (5.0-7.5) PH Ur Specific [place] (1.002-1.030) Urine Protein (NEGATIVE) mg/dL Urine Glucose (UA) (NEGATIVE) mg/dL Urine Ketones (NEGATIVE) mg/dL Urine Occult Blood (NEGATIVE) Urine Nitrite (NEGATIVE) Urine Bilirubin (NEGATIVE) Urine Urobilinogen (NORMAL) E.U./dL Ur Leukocyte Esterase (NEGATIVE) Ur Microscopic Review Urine Culture Comments Influenza A (Rapid) Negative (Negative) Influenza B (Rapid) Negative (Negative) 11/21/18 11/21/18 11/20/18 Range/Units 07:30 07:30 20:01 WBC 12.4 H (4.8-10.8) x10^3/uL RBC 4.33 (4.20-5.40) 10^6/uL Hgb 14.3 (12.0-16.0) g/dL Hct 41.6 (37.0-47.0) % MCV 96.0 (81.0-99.0) fL MCH 32.9 H (27.0-31.0) pg MCHC 34.3 (32.0-36.0) g/dL RDW 13.8 (12.0-15.0) % Plt Count 125 L (130-450) 10^3/uL MPV 9.9 (7.9-10.8) fL Neut # (Auto) 10.8 H (1.5-6.6) 10^3/uL Lymph # (Auto) 0.4 L (1.5-3.5) 10^3/uL [place] # (Auto) 1.1 H (0.0-1.0) 10^3/uL Eos # (Auto) 0.0 (0.0-0.7) 10^3/uL Baso # (Auto) 0.1 (0.0-0.1) 10^3/uL Absolute Nucleated RBC 0.00 x10^3/uL Nucleated RBC % 0.0 /100WBC Manual Slide Review PT (9.9-12.6) secs INR (0.8-1.2) APTT (24.9-33.3) secs Sodium 137 (135-145) mmol/L Potassium 3.2 L (3.5-5.0) mmol/L Chloride 97 L (101-111) mmol/L Carbon Dioxide 30 (21-32) mmol/L Anion Gap 10.0 (6-13) BUN 40 H (6-20) mg/dL Creatinine 1.1 H (0.4-1.0) mg/dL Estimated GFR (MDRD) 48 L (>89) Glucose 134 H (70-100) mg/dL Glycated Hemoglobin (4.6-6.2) % Estim Average Glucose (70-100) Lactic Acid (0.5-2.2) mmol/L Calcium 7.9 L (8.5-10.3) mg/dL Total Bilirubin (0.2-1.0) mg/dL AST (10-42) IU/L ALT (10-60) IU/L Alkaline Phosphatase (42-121) IU/L Troponin I (<0.49) ng/mL Total Protein (6.7-8.2) g/dL Albumin (3.2-5.5) g/dL Globulin (2.1-4.2) g/dL Albumin/Globulin Ratio (1.0-2.2) Triglycerides 85 ( - 149) mg/dL Cholesterol 130 ( - 199) mg/dL LDL Cholesterol, Calc 71 ( - 129) mg/dL VLDL Cholesterol 17 mg/dL HDL Cholesterol 42 L (60 - ) mg/dL LDL/HDL Ratio 1.7 (<4.4) Cholesterol/HDL Ratio 3.1 (<4.4) Lipase (22-51) U/L TSH (0.34-5.60) uIU/mL Urine Color YELLOW Urine Clarity CLEAR (CLEAR) Urine pH 5.0 (5.0-7.5) PH Ur Specific [place] 1.020 (1.002-1.030) Urine Protein NEGATIVE (NEGATIVE) mg/dL Urine Glucose (UA) NEGATIVE (NEGATIVE) mg/dL Urine Ketones NEGATIVE (NEGATIVE) mg/dL Urine Occult Blood NEGATIVE (NEGATIVE) Urine Nitrite NEGATIVE (NEGATIVE) Urine Bilirubin NEGATIVE (NEGATIVE) Urine Urobilinogen 0.2 (NORMAL) (NORMAL) E.U./dL Ur Leukocyte Esterase NEGATIVE (NEGATIVE) Ur Microscopic Review NOT INDICATED Urine Culture Comments NOT INDICATED Influenza A (Rapid) (Negative) Influenza B (Rapid) (Negative) 11/20/18 11/20/18 11/20/18 Range/Units 16:48 16:48 16:48 WBC (4.8-10.8) x10^3/uL RBC (4.20-5.40) 10^6/uL Hgb (12.0-16.0) g/dL Hct (37.0-47.0) % MCV (81.0-99.0) fL MCH (27.0-31.0) pg MCHC (32.0-36.0) g/dL RDW (12.0-15.0) % Plt Count (130-450) 10^3/uL MPV (7.9-10.8) fL Neut # (Auto) (1.5-6.6) 10^3/uL Lymph # (Auto) (1.5-3.5) 10^3/uL [place] # (Auto) (0.0-1.0) 10^3/uL Eos # (Auto) (0.0-0.7) 10^3/uL Baso # (Auto) (0.0-0.1) 10^3/uL Absolute Nucleated RBC x10^3/uL Nucleated RBC % /100WBC Manual Slide Review PT (9.9-12.6) secs INR (0.8-1.2) APTT (24.9-33.3) secs Sodium (135-145) mmol/L Potassium (3.5-5.0) mmol/L Chloride (101-111) mmol/L Carbon Dioxide (21-32) mmol/L Anion Gap (6-13) BUN (6-20) mg/dL Creatinine (0.4-1.0) mg/dL Estimated GFR (MDRD) (>89) Glucose (70-100) mg/dL Glycated Hemoglobin 6.9 H (4.6-6.2) % Estim Average Glucose 151 H (70-100) Lactic Acid 1.6 (0.5-2.2) mmol/L Calcium (8.5-10.3) mg/dL Total Bilirubin (0.2-1.0) mg/dL AST (10-42) IU/L ALT (10-60) IU/L Alkaline Phosphatase (42-121) IU/L Troponin I 0.23 (<0.49) ng/mL Total Protein (6.7-8.2) g/dL Albumin (3.2-5.5) g/dL Globulin (2.1-4.2) g/dL Albumin/Globulin Ratio (1.0-2.2) Triglycerides ( - 149) mg/dL Cholesterol ( - 199) mg/dL LDL Cholesterol, Calc ( - 129) mg/dL VLDL Cholesterol mg/dL HDL Cholesterol (60 - ) mg/dL LDL/HDL Ratio (<4.4) Cholesterol/HDL Ratio (<4.4) Lipase (22-51) U/L TSH (0.34-5.60) uIU/mL Urine Color Urine Clarity (CLEAR) Urine pH (5.0-7.5) PH Ur Specific [place] (1.002-1.030) Urine Protein (NEGATIVE) mg/dL Urine Glucose (UA) (NEGATIVE) mg/dL Urine Ketones (NEGATIVE) mg/dL Urine Occult Blood (NEGATIVE) Urine Nitrite (NEGATIVE) Urine Bilirubin (NEGATIVE) Urine Urobilinogen (NORMAL) E.U./dL Ur Leukocyte Esterase (NEGATIVE) Ur Microscopic Review Urine Culture Comments Influenza A (Rapid) (Negative) Influenza B (Rapid) (Negative) 11/20/18 11/20/18 11/20/18 Range/Units 16:48 16:48 16:48 WBC 13.1 H (4.8-10.8) x10^3/uL RBC 4.48 (4.20-5.40) 10^6/uL Hgb 14.7 (12.0-16.0) g/dL Hct 43.2 (37.0-47.0) % MCV 96.4 (81.0-99.0) fL MCH 32.9 H (27.0-31.0) pg MCHC 34.1 (32.0-36.0) g/dL RDW 14.1 (12.0-15.0) % Plt Count 126 L (130-450) 10^3/uL MPV 9.5 (7.9-10.8) fL Neut # (Auto) 12.2 H (1.5-6.6) 10^3/uL Lymph # (Auto) 0.2 L (1.5-3.5) 10^3/uL [place] # (Auto) 0.6 (0.0-1.0) 10^3/uL Eos # (Auto) 0.0 (0.0-0.7) 10^3/uL Baso # (Auto) 0.0 (0.0-0.1) 10^3/uL Absolute Nucleated RBC 0.00 x10^3/uL Nucleated RBC % 0.0 /100WBC Manual Slide Review RACING MANAGER PT 14.2 H (9.9-12.6) secs INR 1.3 H (0.8-1.2) APTT 23.1 L (24.9-33.3) secs Sodium 134 L (135-145) mmol/L Potassium 3.4 L (3.5-5.0) mmol/L Chloride 94 L (101-111) mmol/L Carbon Dioxide 30 (21-32) mmol/L Anion Gap 10.0 (6-13) BUN 46 H (6-20) mg/dL Creatinine 1.2 H (0.4-1.0) mg/dL Estimated GFR (MDRD) 43 L (>89) Glucose 243 H (70-100) mg/dL Glycated Hemoglobin (4.6-6.2) % Estim Average Glucose (70-100) Lactic Acid (0.5-2.2) mmol/L Calcium 8.1 L (8.5-10.3) mg/dL Total Bilirubin 3.5 H (0.2-1.0) mg/dL AST 37 (10-42) IU/L ALT 50 (10-60) IU/L Alkaline Phosphatase 90 (42-121) IU/L Troponin I (<0.49) ng/mL Total Protein 6.3 L (6.7-8.2) g/dL Albumin 3.3 (3.2-5.5) g/dL Globulin 3.0 (2.1-4.2) g/dL Albumin/Globulin Ratio 1.1 (1.0-2.2) Triglycerides ( - 149) mg/dL Cholesterol ( - 199) mg/dL LDL Cholesterol, Calc ( - 129) mg/dL VLDL Cholesterol mg/dL HDL Cholesterol (60 - ) mg/dL LDL/HDL Ratio (<4.4) Cholesterol/HDL Ratio (<4.4) Lipase 28 (22-51) U/L TSH (0.34-5.60) uIU/mL Urine Color Urine Clarity (CLEAR) Urine pH (5.0-7.5) PH Ur Specific [place] (1.002-1.030) Urine Protein (NEGATIVE) mg/dL Urine Glucose (UA) (NEGATIVE) mg/dL Urine Ketones (NEGATIVE) mg/dL Urine Occult Blood (NEGATIVE) Urine Nitrite (NEGATIVE) Urine Bilirubin (NEGATIVE) Urine Urobilinogen (NORMAL) E.U./dL Ur Leukocyte Esterase (NEGATIVE) Ur Microscopic Review Urine Culture Comments Influenza A (Rapid) (Negative) Influenza B (Rapid) (Negative) Sepsis Event Note (H) - Evaluation Current Stage of Sepsis: Ruled out (elevated WBC sec to prednisone) Assessment/Plan - Problem List (1) Stroke Impression: 1. subacute CVA CTA head shows 1.5 mm arcuate focus of cortical-based enhancement seen in the inferolateral right parietal lobe deep within the sulcus, may represent subacute ischemia. MRI is not on weekend, order on Friday ECHO is pending pt persist present left hemianopsia, unsteady balance continue PT/OT continue eliquis continue Lipitor may need SNF, consult with forensic social worker 2. 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 Controlled rate Afib with Chadsvasc of 8pts>10.8% stroke risk/yr, on ASA, Abnormal EKG with sinus bradycardia in the 30s asymptomatic when pt is on sleep with pauses continue Eliquis continue tele and vital monitor 4. type 2 diabetes mellitus controlled, A1C 6.9 continue slide scale, ACHS, hypoglycemia 5. CKD stage 3 stable, continue hydration as needed 6. Leukocytosis sec to steroids pt present cough, congestion, elevated WBC treated with antibiotics PO 7. COPD on advair and steroids with recently treated PNA stable, continue advair and steroid
[2018-11-21] MEDS ORDERED: A & D OINTMENT 5 GM PACKET TOP PRN (18:28)
[2018-11-22] MEDS: cephALEXin 250 MG CAPSULE PO SCH ×3 (05:35→17:29)
[2018-11-22] MEDS: SODIUM CHLORIDE FLUSH 0.9% 10 ML SYRINGE IVP SCH ×3 (05:35→17:29)
[2018-11-22] MEDS: oxyCODONE 5 MG TABLET PO PRN ×2 (05:39→09:26)
[2018-11-22 05:47] LABS: BASOPHILS % (AUTO) 0.2 %; EOSINOPHILS % (AUTO) 0.3 %; HGB - HEMOGLOBIN 14.7 g/dL (12.0-16.0); LYMPHOCYTES # (AUTO) 0.5 10^3/uL (1.5-3.5); LYMPHOCYTES % (AUTO) 4.3 %; MEAN CORPUSCULAR HEMOGLOBIN 33.3 pg (27.0-31.0); MEAN CORPUSCULAR HGB CONC 34.4 g/dL (32.0-36.0); MEAN CORPUSCULAR VOLUME 96.8 fL (81.0-99.0); MEAN PLATELET VOLUME 9.2 fL (7.9-10.8); MONOCYTES # (AUTO) 0.7 10^3/uL (0.0-1.0); MONOCYTES % (AUTO) 6.8 %; NEUTROPHILS # (AUTO) 9.6 10^3/uL (1.5-6.6); NEUTROPHILS % (AUTO) 88.4 %; PLT - PLATELET COUNT 127 10^3/uL (130-450); RED CELL DISTRIBUTION WIDTH 14.3 % (12.0-15.0); WHITE BLOOD COUNT 10.9 x10^3/uL (4.8-10.8)
[2018-11-22 06:02] LABS: ALBUMIN 2.8 g/dL (3.2-5.5); ALBUMIN/GLOBULIN RATIO 1.1 (1.0-2.2); CREATININE 1.1 mg/dL (0.4-1.0); TOTAL PROTEIN 5.3 g/dL (6.7-8.2)
[2018-11-22] MEDS: IPRATROPIUM/ALBUTEROL 3 ML NEB INH PRN (07:47)
[2018-11-22] MEDS: FORMOTEROL FUMARATE NEB 20 MCG/2 ML INH SCH ×2 (07:47→20:34)
[2018-11-22] MEDS: INSULIN ASPART 300 UNIT/3 ML PEN SUBQ SCH ×4 (09:30→21:32)
[2018-11-22] MEDS: APIXABAN 2.5 MG TABLET PO SCH (09:54)
[2018-11-22] MEDS: CETIRIZINE 10 MG TABLET PO SCH (09:54)
[2018-11-22] MEDS: POLYETHYLENE GLYCOL 3350 17 GM PACKET PO SCH (09:54)
[2018-11-22] MEDS: MONTELUKAST 10 MG TABLET PO SCH (09:55)
[2018-11-22] MEDS: LISINOPRIL 5 MG TABLET PO SCH (09:55)
[2018-11-22] MEDS: ASPIRIN CHEW 81 MG TABLET PO SCH (09:55)
[2018-11-22] MEDS: METOPROLOL TARTRATE 50 MG TABLET PO SCH ×2 (09:55→21:33)
[2018-11-22] MEDS: CHOLECALCIFEROL 1,000 UNIT TABLET PO SCH (09:55)
[2018-11-22] MEDS: ATORVASTATIN 40 MG TABLET PO SCH (09:56)
--- NOTE | 2018-11-22 10:35 | Ultrasound Report ---
Reason: pain, DVT Procedure Date: 11/22/2018 Accession Number: [id number] / [id number] Procedure: US - Duplex Ext Veins Left CPT Code: FULL RESULT: EXAM: LEFT LOWER EXTREMITY VENOUS ULTRASOUND EXAM DATE: 11/22/2018 10:09 AM. CLINICAL HISTORY: Pain, DVT. COMPARISON: None. TECHNIQUE: Real-time sonographic vascular imaging was performed by the hostage negotiator through the lower extremity utilizing both color-flow and Doppler spectral analysis. Multiple enrollment eligibility representative static images were saved for review. FINDINGS: Common Femoral Vein (CFV): Normal. CFV-GSV Junction: Normal. Profunda Femoral Vein (PFV): Normal. Femoral Vein (FV) Prox: Normal. Femoral Vein (FV) Mid: Normal. Femoral Vein (FV) Dist: Normal. Popliteal Vein: Normal. Posterior Tibial Veins: Not well visualized. Peroneal Veins: Not well visualized. Other: None. IMPRESSION: No evidence for deep venous thrombosis in the left lower extremity. RADIA
--- NOTE | 2018-11-22 12:20 | Ultrasound Report ---
Reason: cold, pain Procedure Date: 11/22/2018 Accession Number: [id number] / [id number] Procedure: US - Duplex Lwr Ext Arterial LT CPT Code: FULL RESULT: EXAM: LEFT LOWER EXTREMITY ARTERIAL DOPPLER ULTRASOUND EXAM DATE: 11/22/2018 09:17 AM. CLINICAL HISTORY: Cold, pain. COMPARISON: Bilateral lower extremity venous duplex from 02/03/2016. TECHNIQUE: Real-time sonographic vascular imaging was performed by the cell stripper, utilizing color-flow, Doppler flow, and spectral analysis. Multiple artist representative static images were saved for review. FINDINGS: Examination is limited by extensive calcified atherosclerotic plaque and mural calcification. No detectable flow is demonstrated in the left common femoral artery. Mildly blunted, monophasic waveforms demonstrated in the left deep and superficial femoral arteries. These blunted waveforms are new since the previous examination of 2015. Transcription to insert worksheet here. IMPRESSION: 1. Extensive calcified atherosclerotic plaque and mural calcification in the arteries of the left lower extremity. 2. No detectable flow in the left common femoral artery with new tardus, parvus waveforms in the downstream superficial and deep femoral arteries, suggestive of high-grade stenosis/subtotal occlusion of the left PUBLIC HEALTH AIDE. This is new since 2016. 3. Elevated flow velocities in the distal left superficial femoral artery, suggestive of focal, greater than 50% stenosis. 4. No detectable flow in the left popliteal or calf arteries and left dorsalis pedis, which may be secondary to proximal, upstream stenoses as well as intrinsic peripheral vascular disease. [facility] The call report notification system was initiated by Dr. Arnie Thomas at 12:13 PM on 11/22/2018. The above critical result findings regarding new high-grade stenosis/subtotal occlusion of the left PUBLIC HEALTH AIDE were discussed with Dr. Spivey by Dr. Arnie Thomas at 12:23 PM on 11/22/2018.
[2018-11-22] MEDS ORDERED: CILOSTAZOL 100 MG TABLET PO SCH (13:00)
--- NOTE | 2018-11-22 14:18 | PROVIDER PROGRESS NOTE ---
Subjective - Prog Note Date Prog Note Date: 11/22/18 - Subjective Pt reports feeling: No change Subjective: pt report pain at her left lower extremity, and colder than right lower extremity. bilateral dorsalis pedis pause can not be detectable by palpitation. US of left lower extremity venous and artery indicate no DVT but reveals extensive calcified atherosclerotic plaque and mural calcification in the arteries of the left lower extremity. No detectable flow in the left common femoral artery, no detectable flow in the left popliteal or calf arteries and left dorsalis pedis. I reported all these results to pt. I discussed with pt about all risks, if without intervention, including loss of her foot. Pt reported she acutely had left lower extremity pain for couple of months, had problem beginning from 2016. Pt first told me she did not want to do surgery and just medical management. Then she told nurse she want to have surgery done for her. I called [facility] and tried to report to them and hopefully to have vascular surgeon to take care of her. Then pt told me again she is not sure she want to have surgery, she want her DPOA to make decision for her. Her DPOA will come hospital on 5PM today. pt had normal sensation and motor at her left lower extremity, strength 4/5 on her left lower extremity. pt is alert and oriented today. pt's DPOA did not come to hospital today. we will call her Current Medications - Current Medications Current Medications: Active Medications Acetaminophen (Tylenol) 650 mg PO Q4HR PRN PRN Reason: Pain 1 to 4 Albuterol/Ipratropium (Duoneb) 3 ml INH Q4HR PRN PRN Reason: Wheezing Last Admin: 11/22/18 07:47 Dose: 3 ml Apixaban (Eliquis) 2.5 mg PO BID [facility] Last Admin: 11/22/18 09:54 Dose: 2.5 mg Aspirin ([place] Aspirin) 81 mg PO DAILY [facility] Last Admin: 11/22/18 09:55 Dose: 81 mg Atorvastatin Calcium (Lipitor) 40 mg PO DAILY [facility] Last Admin: 11/22/18 09:56 Dose: 40 mg Cephalexin (Keflex) 250 mg PO Q6HR [facility] Last Admin: 11/22/18 11:32 Dose: 250 mg Cetirizine HCl (Zyrtec) 10 mg PO DAILY [facility] Last Admin: 11/22/18 09:54 Dose: 10 mg Cholecalciferol (Vitamin D3) 2,000 unit PO DAILY [facility] Last Admin: 11/22/18 09:55 Dose: 2,000 unit Cilostazol (Pletal) 100 mg PO BID [facility] Last Admin: 11/22/18 13:34 Dose: 100 mg Formoterol Fumarate (Perforomist) 20 mcg INH RTBID [facility] Last Admin: 11/22/18 07:47 Dose: 20 mcg Insulin Aspart (Novolog) 2 - 10 unit SUBQ 0800,1200,1700,2100 [facility]; Protocol Last Admin: 11/22/18 11:35 Dose: Not Given Lisinopril (Zestril) 5 mg PO DAILY [facility] Last Admin: 11/22/18 09:55 Dose: 5 mg Metoprolol Tartrate (Lopressor Inj) 5 mg IVP Q4HR PRN PRN Reason: RVR afib HR>120 Metoprolol Tartrate (Lopressor) 50 mg PO BID [facility] Last Admin: 11/22/18 09:55 Dose: 50 mg Montelukast Sodium (Singulair) 10 mg PO DAILY [facility] Last Admin: 11/22/18 09:55 Dose: 10 mg Ondansetron HCl (Zofran Inj) 4 mg IVP Q6HR PRN PRN Reason: Nausea / Vomiting Ondansetron HCl (Zofran Odt) 4 mg TL Q6HR PRN PRN Reason: Nausea / Vomiting Oxycodone HCl (Roxicodone) 5 mg PO Q4HR PRN PRN Reason: Pain 5 to 7 Last Admin: 11/22/18 09:26 Dose: 5 mg Polyethylene Glycol (Miralax) 17 gm PO DAILY [facility] Last Admin: 11/22/18 09:54 Dose: 17 gm Sodium Chloride (Normal Saline Flush 0.9%) 10 ml IVP PRN PRN PRN Reason: NEEDED PER PROVIDER ORDERS Sodium Chloride (Normal Saline Flush 0.9%) 10 ml IVP 0100,0900,1700 [facility] Last Admin: 11/22/18 11:32 Dose: 10 ml Vitamin A/Vitamin D (Vitamin A & D Ointment) 1 applic TOP PRN PRN PRN Reason: Skin Care Last Admin: 11/21/18 21:00 Dose: 1 applic Albuterol Sulfate [Ventolin Hfa] 1 - 2 puffs INH Q4H PRN 12/15/14 Atorvastatin [Lipitor] 10 mg PO DAILY 12/15/14 Cholecalciferol [Vitamin D3] 2,000 unit PO DAILY 12/15/14 Fluticasone/Salmeterol 500/50 [Advair 500 Mcg/50 Mcg] 1 puffs INH BID 12/15/14 Lisinopril 30 mg PO DAILY 12/15/14 Montelukast Sodium [Singulair] 10 mg PO DAILY 12/15/14 Furosemide 20 mg PO DAILY 11/28/16 Cetirizine HCl [Allergy Relief] 10 mg PO DAILY 11/12/18 Metoprolol Tartrate [Lopressor] 50 mg PO BID 11/20/18 Objective - Vital Signs/Intake & Output Reviewed Vital Signs: Yes Vital Signs: Vital Signs x48h Temp Pulse Pulse Resp BP BP Pulse Ox 11/22/18 11:51 36.8 C 101 H 92 H 146/77 H 11/22/18 11:26 36.3 C L 86 96 H 94 11/22/18 09:55 153/87 H 11/22/18 08:00 36.3 C L 86 18 153/87 H 96 11/22/18 07:52 90 20 Intake & Output: Intake & Output 11/19/18 11/20/18 11/21/18 11/22/18 23:59 23:59 23:59 23:59 Intake Total 770 920 Output Total 1 Balance 769 920 - Objective General Appearance: positive: No acute distress, Alert. negative: Lethargic Eyes Bilateral: positive: Normal inspection, PERRL, No lid inflammation, Conjunctivae nml ENT: positive: ENT inspection nml, Pharynx nml, No signs of dehydration. negative: Purulent nasal drainage, Pharyngeal erythema, Oral lesions Neck: positive: Nml inspection, Thyroid nml, No JVD, Trachea midline. negative: Thyromegaly, Lymphadenopathy (R), Lymphadenopathy (L), Stiff neck, Swelling/bruising, Tracheal deviation Respiratory: positive: Chest non-tender, No respiratory distress, Breath sounds nml. negative: Wheezes, Rales, Rhonchi Cardiovascular: positive: Regular rate & rhythm, No murmur, No gallop. negative: Irregularly irregular, Extrasystoles, Tachycardia, Bradycardia, JVD present, Systolic murmur, Diastolic murmur Peripheral Pulses: 0 Dorsalis pedis (R), 0 Dorsalis pedis (L), 2+ Radial (R), 2+ Radial (L) Abdomen: positive: Non-tender, No organomegaly, Nml bowel sounds, No distention. negative: Tenderness, Guarding, Rebound Back: positive: Nml inspection. negative: CVA tenderness (R), CVA tenderness (L) Skin: positive: Color nml, No rash, Warm, Dry. negative: Cyanosis, Diaphoresis, Pallor Extremities: positive: Non-tender, Full ROM. negative: Calf tenderness, Joint swelling, [place]'s sign/cords Neurologic/Psychiatric: positive: Oriented x3, Motor nml, Sensation nml. negative: Weakness, Sensory loss, Facial droop, Slurred/abnml speech, Depressed mood/affect - Lab Results Fish Bones: 11/23/18 04:06 11/23/18 04:06 Other Labs: Lab Results x24hrs 11/22/18 11/22/18 Range/Units 05:35 05:35 WBC 10.9 H (4.8-10.8) x10^3/uL RBC 4.40 (4.20-5.40) 10^6/uL Hgb 14.7 (12.0-16.0) g/dL Hct 42.6 (37.0-47.0) % MCV 96.8 (81.0-99.0) fL MCH 33.3 H (27.0-31.0) pg MCHC 34.4 (32.0-36.0) g/dL RDW 14.3 (12.0-15.0) % Plt Count 127 L (130-450) 10^3/uL MPV 9.2 (7.9-10.8) fL Neut # (Auto) 9.6 H (1.5-6.6) 10^3/uL Lymph # (Auto) 0.5 L (1.5-3.5) 10^3/uL [place] # (Auto) 0.7 (0.0-1.0) 10^3/uL Eos # (Auto) 0.0 (0.0-0.7) 10^3/uL Baso # (Auto) 0.0 (0.0-0.1) 10^3/uL Absolute Nucleated RBC 0.00 x10^3/uL Nucleated RBC % 0.0 /100WBC Sodium 139 (135-145) mmol/L Potassium 3.6 (3.5-5.0) mmol/L Chloride 99 L (101-111) mmol/L Carbon Dioxide 31 (21-32) mmol/L Anion Gap 9.0 (6-13) BUN 37 H (6-20) mg/dL Creatinine 1.1 H (0.4-1.0) mg/dL Estimated GFR (MDRD) 48 L (>89) Glucose 98 (70-100) mg/dL Calcium 8.0 L (8.5-10.3) mg/dL Total Bilirubin 3.0 H (0.2-1.0) mg/dL AST 34 (10-42) IU/L ALT 37 (10-60) IU/L Alkaline Phosphatase 72 (42-121) IU/L Total Protein 5.3 L (6.7-8.2) g/dL Albumin 2.8 L (3.2-5.5) g/dL Globulin 2.5 (2.1-4.2) g/dL Albumin/Globulin Ratio 1.1 (1.0-2.2) ABX Reporting Has patient been on IV antibiotics over the past 48 hours?: No Sepsis Event Note (H) - Evaluation Current Stage of Sepsis: Ruled out (elevated WBC sec to prednisone) Assessment/Plan - Problem List (1) Stroke Impression: 11/22 pt continue improved. she did not report her left vision loss. Her left vision was resumed. plan to have MRI for pt on tomorrow. pt report she did not have any phobia continue PT/OT continue eliquis continue Lipitor may need SNF, consult with director of social services ECHO reveals EF 55-60%, unremarkable. CTA head shows 1.5 mm arcuate focus of cortical-based enhancement seen in the inferolateral right parietal lobe deep within the sulcus, may represent subacute ischemia. MRI is not on weekend, order on Friday ECHO is pending pt persist present left hemianopsia, unsteady balance continue PT/OT continue eliquis continue Lipitor may need SNF, consult with director of social services 2. intermittent claudication pt report she had intermittent claudication. Now she did not have more pain, she report she is doing fine. The discussion with pt is as the Subjective documentation above 3. 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 discussed the result with pt, continue support 4. Controlled rate Afib with Chadsvasc of 8pts>10.8% stroke risk/yr, on ASA, Abnormal EKG with sinus bradycardia in the 30s asymptomatic when pt is on sleep with pauses 11/22 resume home Metoprolol for rate and BP control continue tele and vital monitor continue eliquis continue Eliquis continue tele and vital monitor 5. type 2 diabetes mellitus controlled, A1C 6.9 continue slide scale, ACHS, hypoglycemia 6. CKD stage 3 stable, continue hydration as needed 7. Leukocytosis sec to steroids improved. reduced WBC, continue PO antibiotics pt present cough, congestion, elevated WBC treated with antibiotics PO 7. COPD on advair and steroids with recently treated PNA stable, continue advair and steroid
[2018-11-22] MEDS ORDERED: ALBUTEROL NEB 2.5 MG/3 ML INH PRN (15:47)
[2018-11-22] MEDS ORDERED: HEPARIN 5,000 UNIT/ML VIAL IVP ONE (19:39)
[2018-11-22] MEDS ORDERED: HEPARIN 25000UNITS/500ML (D5W) 25,000 UNIT/500 ML BAG IV SCH (20:00)
--- NOTE | 2018-11-22 20:29 | MISCELLANEOUS PROVIDER NOTE ---
Miscellaneous Provider Note - - Note: Subjective: Per LEGAL ADVISOR taking care of patient, Pt report pain at her left lower extremity, and colder than right lower extremity. bilateral dorsalis pedis pause can not be detectable by palpitation. US of left lower extremity venous and artery indicate no DVT but reveals extensive calcified atherosclerotic plaque and mural calcification in the arteries of the left lower extremity. No detectable flow in the left common femoral artery, no detectable flow in the left popliteal or calf arteries and left dorsalis pedis. I reported all these results to pt. I discussed with pt about all risks, if without intervention, including loss of her foot. Pt reported she acutely had left lower extremity pain for couple of months, had problem beginning from 2016. LEGAL ADVISOR attempted to call [facility] and tried to report to them and hopefully to have vascular surgeon to take care of her. Objective: Vital signs are hemodynamically stable, not tachypneic not tachycardic non-hypoxemic General: Patient is in no acute respiratory distress. Alert and oriented x3. No psychomotor retardation HEENT NCAT pupils are equal round react light and accommodation no ptosis no facial drooping Neck: No JVD no bruits no lymphadenopathy CV/lungs regular rate and rhythm, no murmurs gallops clicks or rubs. Expiratory rhonchi with no rales no wheezing. Abdomen: Soft nontender nondistended possible sounds all quads no HSM. No bruits. Next para if extremities/skin: 0-1+ dorsalis pedis to the right foot with 0+ dorsalis pedis on the left with cold cyanotic digits dorsum and plantar portion of the left foot. No lesions, ulcers or cyanotic digits. Cold to touch. Neuro: Cranial nerves II to XII grossly intact. Motor somewhat preserved with residual right hand weakness as opposed to the left hand with dorsi and plantar flexion bilateral conserved with decreased sensory to plantar on the left foot and dorsum to two-point discrimination soft touch and temperature. Labs: Reviewed Imaging studies: Left lower extremity arterial Doppler ultrasound with flow shows extensive calcified atherosclerotic plaque and mural calcification in the arteries of the left lower extremity. No detectable flow in the left common femoral artery and new tardus, parvus waveforms in the downstream superficial a nd deep femoral arteries, suggestive of high-grade stenosis/subtotal occlusion of the left [employer]. This is new since 2016. Elevated flow velocities in the distal left femoral artery, suggestive of focal greater than 50% stenosis. No detectable flow the left popliteal or calf arteries and left dorsalis pedis, which may be secondary to proximal, upstream stenosis as well as intrinsic peripheral vascular disease. Venous Doppler Ultrasound Shows no evidence of DVT. Assessment: 1. Acute on chronic limb ischemia 2. Acute/subacute CVA; Right parietal CVA 3. Atrial fibrillation previously anticoagulated with Eliquis 4. Symptomatic Chronic peripheral vascular disease with intermittent claudication, on ASA/Pletal Plan: Will institute a heparin drip for acute on chronic limb ischemia for which patient possesses symptomatology of cyanosis pain, pallor, Paralysis, pulse deficit, paresthesia, and poikilothermia, which may represent chronic arterial thrombotic occlusions with severe trifurcation disease to the left lower extremity as seen on arterial Doppler flow study. We will start with a heparin bolus of 80 units/kg followed by 15 units/kg/hr as delineated by DVT/PE protocol. Patient likely would require revascularization procedures which would include either a bypass versus percutaneous revascularization, however patient is not a candidate for thrombolytics as patient has an acute to subacute CVA per CTA with history of TIA. Informed consent was obtained for heparin drip to be started and complications, benefits of AC with heparin gtt were reviewed with patient who wants medical treatment but unsure of surgical management. ECHO reveals EF 55-60%, No evidence of arterial thrombus in the left ventricle which makes me think that this is not cardioembolic. Currently patient lacks blue toe syndrome and otherwise has some mild cyanosis with cold and numbness to left foot. CTA head shows 1.5 mm arcuate focus of cortical-based enhancement seen in the inferolateral right parietal lobe deep within the sulcus, may represent subacute ischemia. Underlying peripheral vascular disease with extensive atherosclerosis with calcifications are seen as well on CTA of the head which likely patient's had chronic peripheral vascular disease previously and is of significant importance as this is a risk factor for acute on chronic thrombotic occlusions of this nature. Continue with aggressive medical management which would include guideline directed medical therapy with Lopressor, statin, glycemic control and symptomatic treatment for intermittent claudication. If patient does get accepted to [facility] for revascularization procedure then she will likely require Coumadin or dual antiplatelet therapy along with an NOAC for atrial fibrillation which poses a concern for bleeding risk as patient is above 80 years of age have increased risk of GI bleed and intracranial hemorrhage while being on a and NOAC.
[2018-11-22 20:34] LABS: INR 1.4 (0.8-1.2); PT - PROTHROMBIN TIME 15.7 secs (9.9-12.6)
[2018-11-22] MEDS: BUDESONIDE 0.5 MG/2 ML NEB INH SCH (20:34)
[2018-11-23] MEDS: cephALEXin 250 MG CAPSULE PO SCH ×3 (00:17→11:41)
[2018-11-23 04:27] LABS: BASOPHILS # (AUTO) 0.1 10^3/uL (0.0-0.1); BASOPHILS % (AUTO) 0.6 %; EOSINOPHILS # (AUTO) 0.1 10^3/uL (0.0-0.7); EOSINOPHILS % (AUTO) 1.1 %; HGB - HEMOGLOBIN 13.5 g/dL (12.0-16.0); LYMPHOCYTES # (AUTO) 0.7 10^3/uL (1.5-3.5); LYMPHOCYTES % (AUTO) 7.5 %; MEAN CORPUSCULAR HEMOGLOBIN 33.5 pg (27.0-31.0); MEAN CORPUSCULAR HGB CONC 34.5 g/dL (32.0-36.0); MEAN CORPUSCULAR VOLUME 97.1 fL (81.0-99.0); MEAN PLATELET VOLUME 9.6 fL (7.9-10.8); MONOCYTES # (AUTO) 1.1 10^3/uL (0.0-1.0); MONOCYTES % (AUTO) 10.9 %; NEUTROPHILS % (AUTO) 79.9 %; PLT - PLATELET COUNT 146 10^3/uL (130-450); RED BLOOD COUNT 4.03 10^6/uL (4.20-5.40)
[2018-11-23 04:30] LABS: INR 1.6 (0.8-1.2); PT - PROTHROMBIN TIME 17.4 secs (9.9-12.6)
[2018-11-23 04:37] LABS: ALBUMIN 2.5 g/dL (3.2-5.5); BILIRUBIN,TOTAL 2.4 mg/dL (0.2-1.0); CALCIUM 7.7 mg/dL (8.5-10.3); CREATININE 1.1 mg/dL (0.4-1.0); MAGNESIUM 1.7 mg/dL (1.7-2.8); TOTAL PROTEIN 4.9 g/dL (6.7-8.2)
[2018-11-23] MEDS: SODIUM CHLORIDE FLUSH 0.9% 10 ML SYRINGE IVP SCH ×2 (07:48→09:33)
[2018-11-23] MEDS: FORMOTEROL FUMARATE NEB 20 MCG/2 ML INH SCH (07:58)
[2018-11-23] MEDS: BUDESONIDE 0.5 MG/2 ML NEB INH SCH (07:58)
[2018-11-23] MEDS: IPRATROPIUM/ALBUTEROL 3 ML NEB INH PRN (07:58)
[2018-11-23] MEDS ORDERED: MAGNESIUM OXIDE 400 MG TABLET PO SCH (08:00)
[2018-11-23] MEDS: POLYETHYLENE GLYCOL 3350 17 GM PACKET PO SCH (08:17)
[2018-11-23] MEDS: ATORVASTATIN 40 MG TABLET PO SCH (08:18)
[2018-11-23] MEDS: CHOLECALCIFEROL 1,000 UNIT TABLET PO SCH (08:20)
[2018-11-23] MEDS: MONTELUKAST 10 MG TABLET PO SCH (08:20)
[2018-11-23] MEDS: METOPROLOL TARTRATE 50 MG TABLET PO SCH (08:21)
[2018-11-23] MEDS: LISINOPRIL 5 MG TABLET PO SCH (08:21)
[2018-11-23] MEDS: CETIRIZINE 10 MG TABLET PO SCH (08:21)
[2018-11-23] MEDS: INSULIN ASPART 300 UNIT/3 ML PEN SUBQ SCH ×2 (08:23→11:54)
--- NOTE | 2018-11-23 12:02 | ADVANCE CARE PLANNING NOTE ---
Advance Care Planning - Date/Time Date: 11/23/18 Time: 12:02 - Purpose of encounter Text: advance care for pt - Parties in attendance Parties in attendance: pt, pt's DPOA Fabienne Barnard, and - Decisional capacity Decisional capacity of: pt has hx of Dementia, with very limited capacity to make her own decision. pt has DPOA - Subjective/Patient's story Subjective/Patient's story: pt has hx of Dementia,
--- NOTE | 2018-11-23 12:25 | MRI Report ---
Reason: stroke Procedure Date: 11/23/2018 Accession Number: [id number] / [id number] Procedure: MRI - Brain W/O CPT Code: FULL RESULT: EXAM: MRI BRAIN WITHOUT CONTRAST EXAM DATE: 11/23/2018 11:48 AM. CLINICAL HISTORY: Stroke. Weakness, ataxia, confusion. COMPARISON: HEAD W/O 11/20/2018 5:14 PM. HEAD ANGIO 11/20/2018 7:00 PM. NECK ANGIO 11/20/2018 7:00 PM. TECHNIQUE: Multiplanar, multisequence T1-weighted and fluid-sensitive MR sequences of the brain were performed. Sequences optimized for routine evaluation. Other: None. IV Contrast: None. FINDINGS: Brain Volume: Age-related atrophy is present. Parenchyma/Dura: Acute infarct is seen throughout the right SSN/SSBN [employer] EQU[employer]MENT [employer] vascular territory. This involves the posteromedial temporal lobe as well as inferomedial occipital lobe. Involvement of the body and tail of the right hippocampal formation is seen. Involvement of the posterolateral right thalamus is seen. 7 mm cortical-based focus of heterogeneous signal abnormality is seen deep within the sulcus in the inferolateral right parietal lobe. (This corresponds to focus of enhancement noted on CT scan). This demonstrates increased T1 with heterogeneous target-like T2 signal. Peripheral hypointense with central hyperintense signal is present. Blooming and hypointense magnetic susceptibility is present. No surrounding parenchymal gliosis or acute hemorrhage is seen. Moderate white matter T2/FLAIR bright signal is seen throughout the cerebral hemispheres. Ventricles/Cisterns: Age-related prominence to the ventricular system and overlying cortical sulci is noted. No hydrocephalus. No abnormal extra-axial fluid collection or hemorrhage. Orbits: Unremarkable. Note is made of bilateral lens removal. Sella Turcica: The pituitary gland, cavernous sinuses, suprasellar cistern and optic chiasm are unremarkable. IAC: Symmetric and unremarkable. Vasculature: Normal signal flow void is seen in the major arterial structures at the skull base. Sinuses: Partial opacification and layering fluid level is seen in the left maxillary antrum. Polypoid mucosal thickening is seen inferiorly in right maxillary sinus and bilateral ethmoid air cells. Partial opacification is seen involving peripheral bilateral mastoid air cells. Bones: No focal pathologic appearing marrow signal changes. Degenerative change is seen in the TMJ bilaterally. Other: None. IMPRESSION: 1. Acute infarct in the right SSN/SSBN [employer] E[employer]MENT [employer] vascular territory. This involves posteromedial temporal lobe, inferomedial occipital lobe, and posterolateral thalamus. 2. 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 3. Moderate white matter T2/FLAIR bright signal is seen in the cerebral hemispheres. This is nonspecific. This can be seen secondary to small vessel ischemic change. [facility]IA The call report notification system was initiated by Dr. Rocco Jackson at 12:17 PM on 11/23/2018. ADDENDUM: 11/23/18 12:48 The above call report findings were discussed with Referring Treating Physician by Dr. Rocco Jackson at 12:48 PM on 11/23/2018.
--- NOTE | 2018-11-23 12:57 | DISCHARGE SUMMARY ---
Discharge Summary Discharge Date: 11/23/18 Discharging Provider: CUELLO Primary Care Provider: Tejinder Pruitt Condition at Discharge: Fair Discharge Facility Name: [facility] - DIAGNOSES Admission Diagnoses: 1. subacute CVA 2. Caratid artery disease with right 40% stenosis and left with 25% stenosis 3. Controlled rate Afib with Chadsvasc of 8pts>10.8% stroke risk/yr 4. type 2 diabetes mellitus 5. CKD stage 3 6. Leukocytosis secondary to steroid 7. hx of COPD on advair and steroids with recently treated PNA Discharge Diagnoses with Status of Each Condition: (1) Stroke 2. intermittent claudication 3. Caratid artery disease with right 40% stenosis and left with 25% stenosis 4. Controlled rate Afib with Chadsvasc of 8pts>10.8% stroke risk/yr, 5. type 2 diabetes mellitus 6. CKD stage 2 7. Leukocytosis secondary to steroid 8. hx of COPD - HPI History of Present Illness: refer from Dr. Christy's HPI as the following on 11/20/18: This is a pleasant 83 y/o female wit hx of CVA, PAF, HLP, HTN, osteoporosis, nephrolithiasis, NIDDM type 2, PVD, CKD stage 3, Macular degeneration, gout, chronic back pain, and recently treated for a PNA with abx's and prednisone, presents the emergency department after an episode of right-sided weakness which occurred while at home. The patient reports having difficulty moving her extremities more so on the right side and the symptoms resolved after 2 minutes. Presently, the patient reports being at her baseline. The patient denies any other neurologic changes presently. The patient has had a cough and is recently been treated for pneumonia. No other associated symptoms. Presently the patient only reports a mild cough. No triggering factors. No relieving factors. On labs patient had LA 1.3, hyperglycemic at 243, Tbili 3.5, with mild electrolyte d/o as patient is on lasix, and lisinopril with known diabetic/hypertensive CKD--nephropathy, denies flank pain, fevers, or dysuria. 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 WBC was elevated at 13.1 with INR 1.3, plts of 126 w/o evidence of bleeding, epistaxis or GI/ issues. Prior ECHO on 12/2013 shows a hyperdynamic EF of 70-75% w/o any valvular disease. Patient still actively coughing, Currently with no sputum production but has expiratory rhonchi bilaterally on exam. 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 Pt's focus neurological deficits most resolved except unsteady balance. The case was reported to [facility] surgeon, may have neurologist for consult 2. intermittent claudication pt report she had intermittent claudication on and off on her left leg for couple of months. DPOA report pt feel cold in her left leg for one week. Doppler LWR Ext reveals no detectable flow in the left common femoral artery with new tardus, and in the left popliteal or calf arteries. The case was reported to [facility] vascular surgeon Dr. Landry for high level of care. 3. Caratid artery disease with right 40% stenosis and left with 25% stenosis stable 4. Controlled rate Afib with Chadsvasc of 8pts>10.8% stroke risk/yr controlled HR around 75. pt has no anticoagulation or antiplatelet in her home meds list but CHADSVASC>10.8% stroke risk. Now pt is on Heparin drip 5. type 2 diabetes mellitus controlled, A1C 6.9 continue slide scale, ACHS, hypoglycemia 6. CKD stage 2 stable, creatinine 1.1 7. Leukocytosis secondary to steroid pt present cough, congestion, elevated WBC treated with antibiotics PO. Now WBC is normal, 94% sats on room air 8. hx of COPD stable. - ALLERGIES Allergies/Adverse Reactions: Allergies Allergy/AdvReac Type Severity Reaction Status Date / Time No Known Drug Allergies Allergy Verified 08/18/17 10:35 - MEDICATIONS Home Medications: Ambulatory Orders Medication Instructions Recorded Confirmed Albuterol Sulfate [Ventolin Hfa] 1 - 2 puffs INH Q4H PRN 12/15/14 11/20/18 Atorvastatin [Lipitor] 10 mg PO DAILY 12/15/14 11/20/18 Cholecalciferol [Vitamin D3] 2,000 unit PO DAILY 12/15/14 11/21/18 Fluticasone/Salmeterol 500/50 1 puffs INH BID 12/15/14 11/20/18 [Advair 500 Mcg/50 Mcg] Lisinopril 30 mg PO DAILY 12/15/14 11/20/18 Montelukast Sodium [Singulair] 10 mg PO DAILY 12/15/14 11/20/18 Furosemide 20 mg PO DAILY 11/28/16 11/20/18 Cetirizine HCl [Allergy Relief] 10 mg PO DAILY 11/12/18 11/21/18 predniSONE [Deltasone] 10 mg PO [id number] #25 tab 11/12/18 11/20/18 Metoprolol Tartrate [Lopressor] 50 mg PO BID 11/20/18 11/20/18 - PHYSICAL EXAM AT DISCHARGE General Appearance: positive: No acute distress, Alert. negative: Lethargic Eyes Bilateral: positive: Normal inspection, PERRL, No lid inflammation, Conjunctivae nml ENT: positive: ENT inspection nml, Pharynx nml, No signs of dehydration. negative: Purulent nasal drainage, Pharyngeal erythema, Oral lesions Neck: positive: Nml inspection, Thyroid nml, No JVD, Trachea midline. negative: Thyromegaly, Lymphadenopathy (R), Lymphadenopathy (L), Stiff neck, Swelling/bruising, Tracheal deviation Respiratory: positive: Chest non-tender, No respiratory distress, Breath sounds nml. negative: Wheezes, Rales, Rhonchi Cardiovascular: positive: Regular rate & rhythm, No murmur, No gallop. negative: Irregularly irregular, Extrasystoles, Tachycardia, Bradycardia, JVD present, Systolic murmur, Diastolic murmur Peripheral Pulses: positive: 0 (both left and right dorsalis pedis are undetectable) Abdomen: positive: Non-tender, No organomegaly, Nml bowel sounds, No distention. negative: Tenderness, Guarding, Rebound Back: positive: Nml inspection. negative: CVA tenderness (R), CVA tenderness (L) Skin: positive: Color nml, No rash, Warm, Dry. negative: Cyanosis, Diaphoresis, Pallor, Skin rash Extremities: positive: Non-tender, Nml appearance. negative: Calf tenderness, Joint swelling, [place]'s sign/cords Neurologic/Psychiatric: positive: Sensation nml, Mood/affect nml. negative: Weakness, Sensory loss, Facial droop, Slurred/abnml speech, Depressed mood/affect - LABS Result Diagrams: 11/23/18 14:30 11/23/18 04:06 - SEPSIS Current Stage of Sepsis: Ruled out (elevated WBC sec to prednisone) - FOLLOW UP Follow Up: followup [facility] for high level of care - TIME SPENT Time Spent in Discharge (Minutes): 55
[2018-11-23 14:05] VITALS: BP 107/51
[2018-11-23 14:43] LABS: HGB - HEMOGLOBIN 12.8 g/dL (12.0-16.0); MEAN CORPUSCULAR HEMOGLOBIN 32.9 pg (27.0-31.0); MEAN CORPUSCULAR HGB CONC 33.9 g/dL (32.0-36.0); MEAN CORPUSCULAR VOLUME 97.1 fL (81.0-99.0); MEAN PLATELET VOLUME 9.5 fL (7.9-10.8); RED BLOOD COUNT 3.9 10^6/uL (4.20-5.40); WHITE BLOOD COUNT 11.3 x10^3/uL (4.8-10.8)
== END 2018-11-23 14:00 | disposition short-term general hospital (02) | DRG 66 ==
LOC: EDUNIT# → ED 16:14 → OBS 18:01 → UNDOADMOB 18:01 → OBSVTOIN 11-21 10:53 → OBS 11-21 10:53 → INTOOBSV 11-21 10:53 → MS2 11-21 14:47
PROVIDERS: ADMIT Specialist; ATTEND Specialist
DX: I65.29 Occlusion and stenosis of unspecified carotid artery (principal); I10 Essential (primary) hypertension; E78.00 Pure hypercholesterolemia, unspecified; I63.539 Cerebral infarction due to unspecified occlusion or stenosis of unspecified posterior cerebral artery; I48.91 Unspecified atrial fibrillation; J44.9 Chronic obstructive pulmonary disease, unspecified; Z87.442 Personal history of urinary calculi; H35.30 Unspecified macular degeneration; M19.90 Unspecified osteoarthritis, unspecified site; M85.80 Other specified disorders of bone density and structure, unspecified site; M10.9 Gout, unspecified; G89.29 Other chronic pain; M54.9 Dorsalgia, unspecified; Z90.49 Acquired absence of other specified parts of digestive tract; Z90.710 Acquired absence of both cervix and uterus; Z96.659 Presence of unspecified artificial knee joint; Z96.649 Presence of unspecified artificial hip joint; Z79.02 Long term (current) use of antithrombotics/antiplatelets; Z79.52 Long term (current) use of systemic steroids; Z87.891 Personal history of nicotine dependence; J01.90 Acute sinusitis, unspecified; R74.8 Abnormal levels of other serum enzymes; I69.351 Hemiplegia and hemiparesis following cerebral infarction affecting right dominant side; E11.51 Type 2 diabetes mellitus with diabetic peripheral angiopathy without gangrene; E11.649 Type 2 diabetes mellitus with hypoglycemia without coma; E11.22 Type 2 diabetes mellitus with diabetic chronic kidney disease; I12.9 Hypertensive chronic kidney disease with stage 1 through stage 4 chronic kidney disease, or unspecified chronic kidney disease; N18.3 Chronic kidney disease, stage 3 (moderate); D72.829 Elevated white blood cell count, unspecified; T38.0X5A Adverse effect of glucocorticoids and synthetic analogues, initial encounter; I48.0 Paroxysmal atrial fibrillation; M81.0 Age-related osteoporosis without current pathological fracture; E78.5 Hyperlipidemia, unspecified; R26.9 Unspecified abnormalities of gait and mobility; R47.1 Dysarthria and anarthria; E86.0 Dehydration; Z66 Do not resuscitate; H53.462 Homonymous bilateral field defects, left side
CPT/HCPCS: 36415; 70450; 70496; 70498; 70551; 71046; 80048; 80053; 80061; 81003; 83036; 83605; 83690; 83735; 84443; 84484; 85025; 85027; 85520; 85610; 85730; 87040; 87275; 87276; 93005; 93306; 93926; 93971; 94640; 97116; 97162; 97166; 99284; A9270; G0378; J7626; Q9967; 81001; 83721; 87086; 99285

== ENCOUNTER 2019-01-12 17:36 | Outpatient (CLI) | payer MEDICARE, OTHER ==
[2019-01-12 18:10] LABS: BASOPHILS # (AUTO) 0.1 10^3/uL (0.0-0.1); BASOPHILS % (AUTO) 0.9 %; EOSINOPHILS # (AUTO) 0.1 10^3/uL (0.0-0.7); HGB - HEMOGLOBIN 11.8 g/dL (12.0-16.0); LYMPHOCYTES # (AUTO) 0.6 10^3/uL (1.5-3.5); LYMPHOCYTES % (AUTO) 10.7 %; MEAN CORPUSCULAR HEMOGLOBIN 32.9 pg (27.0-31.0); MEAN CORPUSCULAR HGB CONC 33.1 g/dL (32.0-36.0); MEAN CORPUSCULAR VOLUME 99.4 fL (81.0-99.0); MEAN PLATELET VOLUME 9.2 fL (7.9-10.8); MONOCYTES % (AUTO) 17.2 %; NEUTROPHILS # (AUTO) 3.9 10^3/uL (1.5-6.6); NEUTROPHILS % (AUTO) 69.2 %; PLT - PLATELET COUNT 121 10^3/uL (130-450); RED BLOOD COUNT 3.59 10^6/uL (4.20-5.40); RED CELL DISTRIBUTION WIDTH 16.9 % (12.0-15.0); WHITE BLOOD COUNT 5.7 x10^3/uL (4.8-10.8)
[2019-01-12 18:22] LABS: ALBUMIN 3.2 g/dL (3.2-5.5); ALBUMIN/GLOBULIN RATIO 1.1 (1.0-2.2); BILIRUBIN,TOTAL 1.4 mg/dL (0.2-1.0); CALCIUM 8.4 mg/dL (8.5-10.3); CREATININE 1.1 mg/dL (0.4-1.0); TOTAL PROTEIN 6.2 g/dL (6.7-8.2)
[2019-01-12 19:11] LABS: FREE T4 (FREE THYROXINE) 1.25 ng/dL (0.58-1.64)
[2019-01-12 19:12] LABS: THYROID STIMULATING HORMONE 3.67 uIU/mL (0.34-5.60)
== END 2019-01-12 17:37 | disposition home or self-care (01) ==
LOC: LAB 17:36
PROVIDERS: ATTEND Family Medicine
DX: I63.9 Cerebral infarction, unspecified (principal); Z76.89 Persons encountering health services in other specified circumstances; N18.3 Chronic kidney disease, stage 3 (moderate); J44.9 Chronic obstructive pulmonary disease, unspecified; I12.9 Hypertensive chronic kidney disease with stage 1 through stage 4 chronic kidney disease, or unspecified chronic kidney disease
CPT/HCPCS: 36415; 80053; 83880; 84439; 84443; 84481; 85025

== ENCOUNTER 2019-01-12 17:48 | Outpatient (CLI) | payer MEDICARE, OTHER ==
--- NOTE | 2019-01-13 08:18 | XRAY Report ---
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 CLINICAL HISTORY: CVA, CKD stage 3, COPD, hypertension, anticoagulation management. COMPARISON: CHEST 2 VIEW 11/20/2018 5:04 PM. TECHNIQUE: 2 views. FINDINGS: Lungs/Pleura: There is moderate-sized left-sided pleural effusion. Small right-sided pleural effusion. New oval 6 cm opacity overlies the right perihilar lung favoring intrafissural fluid. No extraventilatory air. No focal airspace opacities. Mediastinum: Stable cardiomegaly. No edema. Mediastinal and hilar contours are stable. Other: None. IMPRESSION: 1. Bilateral pleural effusions, moderate on the left and small on the right. 2. New 6 cm opacity overlies the right perihilar lung on the frontal projection favors intrafissural fluid. Recommend following to resolution or diminishment on serial chest x-ray. RADIA
== END 2019-01-12 17:49 | disposition home or self-care (01) ==
LOC: DI 17:48
PROVIDERS: ATTEND Family Medicine
DX: I63.9 Cerebral infarction, unspecified (principal); J90 Pleural effusion, not elsewhere classified; J44.9 Chronic obstructive pulmonary disease, unspecified; I12.9 Hypertensive chronic kidney disease with stage 1 through stage 4 chronic kidney disease, or unspecified chronic kidney disease; N18.3 Chronic kidney disease, stage 3 (moderate); Z76.89 Persons encountering health services in other specified circumstances; R91.8 Other nonspecific abnormal finding of lung field
CPT/HCPCS: 36415; 71046; 80053; 83880; 84439; 84443; 84481; 85025

== ENCOUNTER 2019-01-20 08:00 | Outpatient (CLI) | payer MEDICARE, OTHER ==
[2019-01-20 16:29] LABS: BILIRUBIN,URINE NEGATIVE (NEGATIVE); CLARITY,URINE CLEAR (CLEAR); GLUCOSE, URINE (UA) NEGATIVE (NEGATIVE); KETONES,URINE (UA) NEGATIVE (NEGATIVE); LEUKOCYTE ESTERASE, URINE NEGATIVE (NEGATIVE); NITRITE,URINE NEGATIVE (NEGATIVE); OCCULT BLOOD,URINE NEGATIVE (NEGATIVE); PROTEIN,URINE NEGATIVE (NEGATIVE); UROBILINOGEN,URINE 0.2 (NORMAL) E.U./dL (NORMAL)
== END 2019-01-20 23:59 | disposition home or self-care (01) ==
LOC: LAB.R 08:00
PROVIDERS: ATTEND Family Medicine
DX: N39.0 Urinary tract infection, site not specified (principal)
CPT/HCPCS: 81001; 81003; 87086

== ENCOUNTER 2019-02-02 14:43 | Emergency (ER) | payer MEDICARE, OTHER ==
--- NOTE | 2019-02-02 15:00 | ED Physician Documentation ---
PD HPI BACK PAIN - Stated complaint Stated Complaint: BACK PX - Chief complaint Chief Complaint: Back Pain - History obtained from History obtained from: Patient - History of Present Illness Timing - onset: How many days ago (4) Timing - duration: Days (4) Timing - details: Abrupt onset Pain level max: 5 Pain level now: 5 Severity Comments: moderate Location: Right Quality: Pain, Sharp Associated symptoms: No: Fever, Weakness, Numbness, Hematuria Improves with: Rest Worsened by: Movement, Twisting, Other (weight bearing) Contributing factors: Other (this occurred when the patient was stretching to put her R shoe on and she felt sharp pain in her R hip) Similar symptoms before: Has not had sx before Recently seen: Not recently seen Review of Systems Ten Systems: 10 systems reviewed and negative Constitutional: denies: Fever, Chills GI: denies: Abdominal Pain : reports: Reviewed and negative Skin: denies: Rash, Abrasion (s), Laceration (s) Musculoskeletal: reports: Joint pain. denies: Neck pain, Back pain, Extremity pain, Extremity swelling Neurologic: denies: Focal weakness, Numbness PD PAST MEDICAL HISTORY - Past Medical History Past Medical History: Yes Cardiovascular: Hypertension, High cholesterol, Peripheral Vascular Disease, Atrial fibrillation Respiratory: COPD, Pneumonia Neuro: CVA Endocrine/Autoimmune: Type 2 diabetes : Renal insuffiency, Kidney stones HEENT: Macular degeneration Musculoskeletal: Osteoarthritis, Osteopenia, Gout, Chronic back pain Derm: Other - Past Surgical History Past Surgical History: Yes General: Appendectomy, Colonoscopy Ortho: Hip replacement, Knee replacement, 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 HEENT: Cataracts - Present Medications Home Medications: Ambulatory Orders Medication Instructions Recorded Confirmed Albuterol Sulfate [Ventolin Hfa] 1 - 2 puffs INH Q4H PRN 12/15/14 11/20/18 Atorvastatin [Lipitor] 10 mg PO DAILY 12/15/14 11/20/18 Cholecalciferol [Vitamin D3] 2,000 unit PO DAILY 12/15/14 11/21/18 Fluticasone/Salmeterol 500/50 1 puffs INH BID 12/15/14 11/20/18 [Advair 500 Mcg/50 Mcg] Lisinopril 30 mg PO DAILY 12/15/14 11/20/18 Montelukast Sodium [Singulair] 10 mg PO DAILY 12/15/14 11/20/18 Furosemide 20 mg PO DAILY 11/28/16 11/20/18 Cetirizine HCl [Allergy Relief] 10 mg PO DAILY 11/12/18 11/21/18 predniSONE [Deltasone] 10 mg PO [id number] #25 tab 11/12/18 11/20/18 Metoprolol Tartrate [Lopressor] 50 mg PO BID 11/20/18 11/20/18 Tramadol HCl 50 mg PO Q6HR #20 tablet 02/02/19 - Allergies Allergies/Adverse Reactions: Allergies Allergy/AdvReac Type Severity Reaction Status Date / Time No Known Drug Allergies Allergy Verified 08/18/17 10:35 - Social History Does the pt smoke?: No Smoking Status: Former smoker Does the pt drink ETOH?: No Does the pt have substance abuse?: No - Immunizations Immunizations are current?: Yes - POLST Patient has POLST: No PD ED PE NORMAL - Vitals Vital signs reviewed: Yes - General General: Alert and oriented X 3 - HEENT HEENT: Atraumatic - Neck Neck: Supple, no meningeal sign - Cardiac Cardiac: RRR - Respiratory Respiratory: No respiratory distress - Abdomen Abdomen: Soft, Non tender, Non distended - Female Female : Deferred - Rectal Rectal: Deferred - Back Back: No: No CVA TTP, No spinal TTP - Derm Derm: No: Normal color, Warm and dry, No rash - Extremities Extremities: Other (Right hip pain with Raising the R leg, mild tenderenss to palpation, not rotated or shortened) - Neuro Neuro: Alert and oriented X 3 Eye Opening: Spontaneous Motor: Obeys Commands Verbal: Oriented GCS Score: 15 - Psych Psych: Normal mood, Normal affect Results - Vitals Vitals: Vital Signs - 24 hr 02/02/19 02/02/19 14:49 17:09 Temperature 36.6 C 36.2 C L Heart Rate 78 65 Respiratory 16 12 Rate Blood Pressure 131/68 H 144/64 H O2 Saturation 100 99 Oxygen O2 Source [] Room air O2 Source Room air - Rads (name of study) No standard instances Radiology: Final report received (old T12 compression fracture unchanged, DJD, no acute abnormalities) PD MEDICAL DECISION MAKING - ED course Complexity details: considered differential ED course: 83 y/o F with R hip pain for 4 days after straining putting on her shoe. Pain with ROM on exam. DDx includes hip fracture, pelvic fracture, muscle strain, labrum tear. Will obtain xray Xrays of hip and back negative. Likely strain, will start analgesics and pt to f/u with PCP as needed. Departure - Departure Disposition: 01 Home, Self Care Clinical Impression: Back pain Qualifiers: Back pain location: low back pain Chronicity: unspecified Back pain laterality: unspecified Sciatica presence: without sciatica Qualified Code(s): M54.5 - Low back pain Hip pain, acute Qualifiers: Laterality: right Qualified Code(s): M25.551 - Pain in right hip Condition: Stable Record reviewed to determine appropriate education?: No Follow-Up: Tejinder Whaley MD [Primary Care Provider] - As Needed Prescriptions: Tramadol HCl 50 mg PO Q6HR #20 tablet
--- NOTE | 2019-02-02 16:45 | XRAY Report ---
Reason: back pain Procedure Date: 02/02/2019 Accession Number: [id number] / [id number] Procedure: XR - Lumbar Spine 2 View CPT Code: FULL RESULT: EXAM: LUMBOSACRAL SPINE RADIOGRAPHY EXAM DATE: 02/02/2019 03:53 PM. CLINICAL HISTORY: Back pain. COMPARISONS: LUMBAR SPINE 2 VIEW 10/16/2016 12:16 PM CHEST 2 VIEW 11/20/2018 5:04 PM CHEST 2 VIEW 01/12/2019 5:58 PM. TECHNIQUE: 3 views. FINDINGS: Alignment: No scoliosis. Minimal degenerative anterolisthesis of L3. Bones: 5 lumbar vertebrae. Anterior compression of T12, age unknown, but present in December and unchanged. No definite acute fracture or other bone lesion. Left total hip prosthesis. Degenerative changes in the right hip. Disks: Narrowing at T12-L1. Other lumbar disk spaces well preserved. Facets: Generalized degenerative changes most marked at L4-L5 and L5-S1. Sacroiliac Joints: Mild degenerative changes. Soft Tissues: Extensive vascular calcification; no aneurysm. IMPRESSION: 1. Lower lumbar degenerative facet disease. 2. No significant interval change of T12 compression fracture. RADIA
--- NOTE | 2019-02-02 16:47 | XRAY Report ---
Reason: pain with ROM of hip Procedure Date: 02/02/2019 Accession Number: [id number] / [id number] Procedure: XR - Hip w/Pelvis 2-3V RT CPT Code: FULL RESULT: EXAM: PELVIS AND RIGHT HIP RADIOGRAPHY EXAM DATE: 02/02/2019 04:23 PM. CLINICAL HISTORY: Pain with ROM of hip. COMPARISON: XR HIP UNILAT MIN 2 VIEW 11/23/2009 11:08 AM. TECHNIQUE: Pelvis and right hip, each 1 view. FINDINGS: Bones: Osteopenia. No definite acute fracture or other bone lesion. Joints: Left total hip prosthesis in anatomic alignment. No abnormal lucency associated with the prosthesis. Marked right hip joint space narrowing with marginal lipping. Soft Tissues: Vascular calcifications. IMPRESSION: Marked degenerative changes of the right hip and other chronic findings. RADIA
[2019-02-02 17:10] VITALS: BP 144/64
[2019-02-02] MEDS ORDERED: traMADol 50 MG TABLET PO STA (17:11)
== END 2019-02-02 17:23 | disposition home or self-care (01) ==
LOC: ED 14:43
DX: M54.5 Low back pain (principal); M25.551 Pain in right hip; I10 Essential (primary) hypertension; E11.51 Type 2 diabetes mellitus with diabetic peripheral angiopathy without gangrene; Z87.891 Personal history of nicotine dependence
CPT/HCPCS: 72100; 73502; 99283; A9270

== ENCOUNTER 2019-02-25 12:58 | Outpatient (CLI) | payer MEDICARE, OTHER ==
[2019-02-25 19:57] LABS: BILIRUBIN,URINE NEGATIVE (NEGATIVE); GLUCOSE, URINE (UA) NEGATIVE (NEGATIVE); KETONES,URINE (UA) NEGATIVE (NEGATIVE); LEUKOCYTE ESTERASE, URINE TRACE (NEGATIVE); NITRITE,URINE NEGATIVE (NEGATIVE); OCCULT BLOOD,URINE NEGATIVE (NEGATIVE); PROTEIN,URINE NEGATIVE (NEGATIVE); UROBILINOGEN,URINE 0.2 (NORMAL) E.U./dL (NORMAL)
[2019-02-25 20:06] LABS: BACTERIA,URINE None Seen /HPF (None Seen); CASTS, URINE 0-2 Hyaline Casts /LPF; CLARITY,URINE CLEAR (CLEAR); RBC,URINE 0-5 /HPF (0-5); SQUAMOUS EPITHELIAL CELL,UR RARE Squamous (<= Few)
== END 2019-02-25 23:59 | disposition home or self-care (01) ==
LOC: LAB.R 12:58
PROVIDERS: ATTEND Family Medicine
DX: R41.82 Altered mental status, unspecified (principal)
CPT/HCPCS: 81001; 81003; 87086